=== PATIENT | male | born 1955 | race Caucasian/White ===

== ENCOUNTER 2017-06-10 13:15 | Inpatient (IN) ==
--- NOTE | 2017-06-10 14:29 | Diag Imaging Result Doc PS360 ---
EXAM: CT HEAD W/O CONTRAST HISTORY: ams TECHNIQUE: CT brain without contrast. Dose reduction protocol. COMPARISON: None. FINDINGS: No parenchymal hemorrhage. No epidural or subdural hematoma. No subarachnoid hemorrhage. No mass identified on this noncontrasted exam. No hydrocephalus. There are mild microvascular ischemic changes. No sinus opacification. IMPRESSION: 1.No hemorrhage 2.Minimal atrophy with mild chronic microvascular ischemic changes Electronically signed by Davon Keane 06/10/2017 2:26 PM
--- NOTE | 2017-06-10 14:34 | Diag Imaging Result Doc PS360 ---
EXAM: CHEST-PORTABLE HISTORY: AMS TECHNIQUE: AP portable at 1423 COMMENT: The inspiration is less optimal than on 12/13/2014. Otherwise, there has been no significant change. IMPRESSION: Stable chest. Electronically signed by Michael Han 06/10/2017 2:32 PM
[2017-06-10 14:56] LABS: BASO% 0.1 % (0.0-0.8); EOS# 0.01 X1000 (0.0-0.7); EOS% 0.1 % (0.0-10.0); HEMATOCRIT 43.2 % (42.0-52.0); HEMOGLOBIN 14.5 g/dL (14.0-18.0); IMM GRAN# 0.08 X1000 (0.0-0.04); IMM GRAN% 0.5 % (0.0-0.5); LYMPH# 0.95 X1000 (1.2-3.4); LYMPH% 5.4 % (20.5-51.1); MANUAL DIFF NEEDED? NO; MCH 30.3 PG (27-31); MCHC 33.6 g/dL (33-37); MCV 90.2 FL (81-99); MONO# 1.22 X1000 (0.11-0.59); MONO% 6.9 % (1.7-9.3); MPV 11.7 FL (7.4-10.4); PLT 216 X1000 (130-400); RBC 4.79 XMIL (4.7-6.1)
[2017-06-10 15:17] LABS: MAGNESIUM 2.5 mg/dL (1.5-2.7); POTASSIUM 5.5 mmol/L (3.5-5.1); TOTAL BILIRUBIN 0.78 mg/dL (0.20-1.00); TOTAL PROTEIN 7.4 g/dL (6.3-8.3)
[2017-06-10 15:27] LABS: URINE CULTURE NEEDED? NO; URINE MICRO REVIEW NEEDED? NO; URINE SOURCE CATH
[2017-06-10 15:29] LABS: FREE T4 0.92 ng/dL (0.93-1.70)
[2017-06-10 15:34] LABS: BILIRUBIN URINE NEGATIVE (NEGATIVE); BLOOD URINE LARGE (NEGATIVE); COLOR ORANGE; GLUCOSE URINE NEGATIVE (NEGATIVE); LEUKOCYTES URINE NEGATIVE (NEGATIVE); NITRITE URINE NEGATIVE (NEGATIVE); PH URINE 5.5; PROTEIN URINE 70 mg/dL (NEGATIVE); SP GRAVITY URINE 1.016; TURBIDITY URINE HAZY (CLEAR); UR EPITHELIAL CELLS <10 /HPF (<10); URINE BACTERIA NEGATIVE /HPF; URINE RBC <10 /HPF (<10); URINE WBC <10 /HPF (<10); UROBILINOGEN URINE NORMAL (NORMAL)
--- NOTE | 2017-06-10 15:36 | EKG Report ---
Test Performed on : 06/10/2017 2:00:46 PM Test Reason : AMS Blood Pressure : / mmHG Vent. Rate : 088 BPM Atrial Rate : 088 BPM P-R Int : 138 ms QRS Dur : 108 ms QT Int : 408 ms P-R-T Axes : 024 133 037 degrees QTc Int : 493 ms Normal sinus rhythm. Right axis deviation Right ventricular hypertrophy Nonspecific ST abnormality Prolonged QT Abnormal ECG When compared with ECG of 05-OCT-2014 06:47, QRS axis shifted right QT has lengthened Unconfirmed Result
[2017-06-10] MEDS ORDERED: NS 1,000 ML IV ONE (16:06)
[2017-06-10] MEDS ORDERED: LEVAQUIN 750 MG/D5W 750 MG/150 ML IVPB IV ONE (16:07)
--- NOTE | 2017-06-10 16:19 | PROVIDER DOCUMENTATION ---
This chart was entered by Guille Singer Scribe, acting as scribe for Clara Wilson MD. HPI-General Adult - General Chief Complaint: Altered Mental Status Stated Complaint: AMS Time Seen by Provider: 06/10/17 13:36 Source: patient Allergies/Adverse Reactions: Patient Allergies Allergy/AdvReac Type Severity Reaction Status Date / Time No Known Allergies Allergy Verified 06/10/17 13:44 Home Medications: Home Medication List Medication Instructions Recorded Confirmed Last Taken Type Fluphenazine [Prolixin] 2.5 mg PO QHS 03/06/15 03/06/15 03/05/15 History Fluticasone/Vilanterol [Breo INH DAILY 03/06/15 03/06/15 03/06/15 History Ellipta 100-25 Mcg INH] - History of Present Illness -Gen Adult Nature of Presenting Problems: Patient is a 62 y /o M that presents to the ER via EMS for what EMS described that patient was starring off in space. patient doesn't know why he is here nor has any complaints. He reports son wanted him to come to the ER Location of Pain/Injury: reports: none Pain Radiation: reports: no radiation Quality of Pain: reports: none Severity: reports: mild Onset/Duration: reports: unsure Timing: reports: improving Context/Activities at Onset: reports: none Modifying Factors: improves with: nothing Associated Symptoms: denies: back/neck pain, chest pain, diarrhea, dizziness, fever/chills, genitourinary problems, headaches, nausea, rash, shortness of breath, vomiting, weakness Similar Symptoms Previously?: No Recently seen or treated by another doctor?: No Review of Systems - Adult - REVIEW OF SYSTEMS - ADULT Constitutional: denies: chills, fever Eyes: reports: no symptoms reported Ears, Nose, Mouth & Throat: reports: no symptoms reported Cardiovascular: denies: chest pain, orthopnea, palpitations, syncope Respiratory: denies: cough, shortness of breath, wheezing Gastrointestinal: denies: abdominal pain, hematemesis, diarrhea, nausea, rectal bleeding, vomiting Genitourinary: denies: dysuria, frequency, hematuria Musculoskeletal: denies: back pain, joint pain, neck pain Integumentary: reports: no symptoms reported Neurological: denies: dizziness/vertigo, headache/migraines, seizure, syncope Psychiatric: reports: no symptoms reported Endocrine: reports: no symptoms reported Hematologic/Lymphatic: reports: no symptoms reported Allergic/Immunologic: reports: no symptoms reported All Other Systems: Reviewed and Negative Past History - Adult - PAST MEDICAL HISTORY-ADULT Review of Records: reports: Old Records Reviewed, Nursing Assessment Review, Medications Reviewed Cardiovascular: reports: HTN Respiratory: reports: COPD, sleep apnea Musculoskeletal: reports: chronic pain Psychiatric: reports: bipolar, schizophrenia Endocrine/Immune: reports: Diabetes - PRIOR SURGERIES/PROCEDURES Surgical/Procedure History: reports: back/neck - IMMUNIZATION STATUS Childhood Immunizations: See Nurse Assessment Flu Vaccine: See Nurse Assessment - FAMILY HISTORY Family History: reviewed, not pertinent - SOCIAL HISTORY Smoking: quit greater than 1 year, cigarettes Living Situation: family Physical Exam-General - PHYSICAL EXAM-ADULT Initial Vital Signs Reviewed: Yes - CONSTITUTIONAL General Appearance: alert, no apparent distress - EYES Eyes: PERRL/EOMI, pink conjunctivae - HEAD, EARS, NOSE, MOUTH & THROAT HENMT: normocephalic/atraumatic, moist mucous membranes, normal ENT inspection - NECK Neck: non-tender, full range of motion, normal inspection - RESPIRATORY Respiratory: lungs clear, normal breath sounds, no respiratory distress, no accessory muscle use - CARDIOVASCULAR Cardiovascular: regular rate, rhythm, no edema, no JVD, no murmur - GASTROINTESTINAL (ABDOMEN) Abdominal Exam: normal bowel sounds, non tender, soft - MUSCULOSKELETAL Back Exam: no CVA tenderness, no vertebral tenderness Extremity: normal range of motion, normal inspection, no pedal edema - SKIN Integumentary: normal color, warm/dry - NEUROLOGIC Neurologic: scallop cutter machine II-XII nml as tested, no motor/sensory deficits - PSYCHIATRIC Psych/Mental Status: normal mood/affect, normal thought content, normal thought process, oriented x 3 Progress - PLAN OF CARE/RESULTS Progress/Plan/Lab Results: Vital Signs - 8 hr 06/10/17 13:31 Temperature 98.1 F Pulse Rate 89 Respiratory Rate 16 Blood Pressure 120/77 O2 Sat by Pulse Oximetry 97 1357- spoke with son, he wants patient to go to [facility] for abnormal behavior this am. patient apparently used restroom on himself. Son reports having to go over twice to his father's residence and just wants him evaluated for possible [facility] admission. Patient has no SI, HI, or depression issues. Vital Signs Temp Pulse Resp BP Pulse Ox 06/10/17 15:59 86 18 110/69 96 06/10/17 14:45 86 18 108/67 95 06/10/17 14:05 87 16 108/67 97 06/10/17 13:31 98.1 F 89 16 120/77 97 No Known Allergies Allergy (Verified 06/10/17 13:44) Fluphenazine [Prolixin] 2.5 mg PO QHS 03/06/15 Fluticasone/Vilanterol [Breo Ellipta 100-25 Mcg INH] INH DAILY 03/06/15 Laboratory 06/10/17 06/10/17 06/10/17 14:59 14:13 14:13 WBC RBC Hgb Hct MCV MCH MCHC RDW Std Deviation Plt Count MPV Immature Gran % (Auto) Neut % (Auto) Lymph % (Auto) Mchenry % (Auto) Eos % (Auto) Baso % (Auto) Immature Gran # (Auto) Neut # (Auto) Lymph # (Auto) Mchenry # (Auto) Eos # (Auto) Baso # (Auto) Sodium Potassium Chloride Carbon Dioxide Anion Gap BUN Creatinine Estimated GFR/1.73 m2 BUN/Creatinine Ratio Glucose Calculated Osmolality Calcium Magnesium Total Bilirubin AST ALT Alkaline Phosphatase Total Protein Albumin Globulin Albumin/Globulin Ratio Vitamin B12 328 TSH 1.20 Free T4 0.92 L Urine Source CATH Urine Color ORANGE Urine Turbidity HAZY Urine pH 5.5 Ur Specific [place] 1.016 Urine Protein 70 A Ur Glucose (Stick) NEGATIVE Ur Ketones (Stick) 20 A Urine Blood LARGE A Urine Nitrite NEGATIVE Urine Bilirubin NEGATIVE Urobilinogen Dipstick NORMAL Urine Leukocytes NEGATIVE Urine WBC (Auto) <10 Urine RBC (Auto) <10 U Epithel Cells (Auto) <10 Urine Bacteria (Auto) NEGATIVE RPR NON-REACTIVE 06/10/17 06/10/17 14:13 14:13 WBC 17.74 H RBC 4.79 Hgb 14.5 Hct 43.2 MCV 90.2 MCH 30.3 MCHC 33.6 RDW Std Deviation 14.1 Plt Count 216 MPV 11.7 H Immature Gran % (Auto) 0.5 Neut % (Auto) 87.0 H Lymph % (Auto) 5.4 L Mchenry % (Auto) 6.9 Eos % (Auto) 0.1 Baso % (Auto) 0.1 Immature Gran # (Auto) 0.08 H Neut # (Auto) 15.47 H Lymph # (Auto) 0.95 L Mchenry # (Auto) 1.22 H Eos # (Auto) 0.01 Baso # (Auto) 0.01 Sodium 137 Potassium 5.5 H Chloride 98 Carbon Dioxide 15 L Anion Gap 24 BUN 51 H Creatinine 2.8 H Estimated GFR/1.73 m2 23 BUN/Creatinine Ratio 18 Glucose 75 Calculated Osmolality 286 Calcium 9.0 Magnesium 2.5 Total Bilirubin 0.78 AST 526 H ALT 111 H Alkaline Phosphatase 113 Total Protein 7.4 Albumin 4.0 Globulin 3.4 Albumin/Globulin Ratio 1.2 Vitamin B12 TSH Free T4 Urine Source Urine Color Urine Turbidity Urine pH Ur Specific [place] Urine Protein Ur Glucose (Stick) Ur Ketones (Stick) Urine Blood Urine Nitrite Urine Bilirubin Urobilinogen Dipstick Urine Leukocytes Urine WBC (Auto) Urine RBC (Auto) U Epithel Cells (Auto) Urine Bacteria (Auto) RPR Result Diagrams: 06/10/17 14:13 06/10/17 14:13 - EKG 1 Time of EKG reading by physician:: 14:12 EKG Read and Signed by:: Clara Wilson EKG Interpretation (*Must complete 3 of following elements*): Abnormal Rate: 88 Rhythm: NSR Nolan: right ID Interval: normal ST Wave: non-specific ST changes - XRAY 1 XRAY Study: Chest Impression: Abnormal XRAY Interpretation: stable chest - CT/MRI 1 CT Study: Head Impression: Abnormal CT Results: no hemorrhage, atrophy microvascular changes - CONSULTS/PCP/HOSPITALIST Notification #1 *Consult/PCP/Hospitalist*: Rachel KAY with hospitalist Time Discussed: 16:15 Reason/Comments: Consult Disposition: Will see in ED, Admit Departure - Departure Date of Disposition Decision: 06/10/17 Time of Disposition Decision: 16:17 DIAGNOSIS: Renal insufficiency, Leukocytosis, UTI (urinary tract infection), uncomplicated Mental status alteration Qualifiers: Altered mental status type: unspecified Qualified Code(s): R41.82 - Altered mental status, unspecified Disposition: ADMITTED INPATIENT 09 Certified Medical Emergency: Emergent Condition: Stable Referrals and Follow-Ups: Garry Virgen MD [Primary Care Provider] - - Critical Care Note This patient required my direct & personal management of CC.: No Attestation - Physician/ EDGARD Attestation The physician spent face to face time with patient:: Yes Advanced Practice Provider documentation review:: Supervising physician onsite and consulted in the evaluation and care of this patient. The physician did have a face to face encounter with the patient. This chart was documented by the indicated scribe, (Guille Singer, Lukas) and accurately reflects the services I performed and decisions made by me, Clara Wilson MD, as attested by the provider's signature.
[2017-06-10] MEDS ORDERED: VELTASSA PO ONE (17:12)
--- NOTE | 2017-06-10 19:11 | HISTORY AND PHYSICAL ---
PRIMARY CARE PROVIDER: Is no longer Frantz Chua, but now Dr. Garry Virgen. CHIEF COMPLAINT: Fall and confusion. HISTORY OF PRESENT ILLNESS: Mr. Junito Anderson is a 62-year-old, male, with a medical history of schizophrenia and bipolar disorder who apparently been having some on and off confusion over the last couple of days per his roommate and his son. The son seems to think that maybe he has been getting some of his medications confused and they have come here to get him admitted to [facility]. Workup revealed that he has some mild ANTHONY with a BUN and creatinine of 51 and 2.8, some elevation of his AST and ALT, and elevated white blood cell count. He is afebrile. The urinalysis does show some blood, but no bacteria or white blood cells. A chest x-ray has no obvious pneumonia. In the falls he has not sustained any injuries and his head CT was negative. We will admit to the medical floor. Continue psychiatric medications once they are confirmed. Will start antibiotic regimen for leukocytosis with unknown origin of infection , IV fluid for hydration for ANTHONY, and elevated AST and ALT, and will monitor for his confusion. PAST MEDICAL HISTORY: Bipolar disorder, schizophrenia, metabolic syndrome, hypertension. SURGICAL HISTORY: Back surgery. SOCIAL HISTORY: Retired cyber security manager. Has a roommate. Lives in an apartment. Has 1 son. Denies tobacco, alcohol or illicit drug use. FAMILY HISTORY: Mother of natural causes. REVIEW OF SYSTEMS: Fourteen point review of systems were completed and all were negative except for those mentioned above in HPI. He denies any urinary tract infections. Denies dysuria, urinary urgency or foul-smelling urine. Denies any shortness of breath or cough. Denies nausea or vomiting. Denies constipation or diarrhea. ALLERGIES: No known drug allergies. HOME MEDICATIONS: Have not been yet verified or reconciled. PHYSICAL EXAMINATION: VITAL SIGNS: Temperature is 98.1 degrees, heart rate 86, respiratory rate 18, blood pressure 110/69, O2 saturation 96% on room air. He is 6 feet 5 inches tall, 278 pounds. BMI 33.0. GENERAL: Mr. Junito Anderson is a 62-year-old, male. He is in no acute distress. He is able to answer questions appropriately. HEENT: Atraumatic, normocephalic. Pupils equal, round, reactive to light. Extraocular movements intact. Mucous membranes are dry. NECK: Trachea midline. CARDIOVASCULAR: S1, S2. Regular rate and rhythm. No rubs, gallops, murmurs. No JVD or carotid bruits. +2 dorsalis and radial pulses. No edema noted. PULMONARY: Clear to auscultation. Bilateral breath sounds. No accessory muscle use or work of breathing noted. GI: Soft, nontender, nondistended. Positive bowel sounds x 4. NEUROLOGIC: Oriented x 3. Moved all extremities equally. SKIN: Warm, dry, intact. PSYCHIATRIC: Current psych is pleasant, not confused, is cooperative. No agitation at this time. LABORATORY DATA: White blood cells 17,000, hemoglobin 14, hematocrit 43, platelet count 216,000. Sodium 137, potassium 5.5, BUN 51, creatinine is 2.8, glucose 75, magnesium 2.5 , bilirubin 0.78. AST 526, ALT 111, protein 7.4, albumin 4.0, B12 328, folate 25, TSH. 1.2, free T4 is 0.92. Urinalysis 70 protein, 20 ketones, large blood in the urine. Negative nitrites , negative leukocytes, negative bacteria. IMAGING: Head CT: No hemorrhage, minimal atrophy with mild chronic microvascular ischemic changes. EKG: Normal sinus rhythm, rate 88, QTc 493. Chest x-ray: Stable chest. ASSESSMENT AND PLAN: 1. Leukocytosis with unfound origin for infection. He is afebrile. Urinalysis does have blood in it, but no obvious leukocytes, nitrites or bacteria. We will go ahead and prophylactically give Zosyn IV and follow up on blood cultures. 2. Metabolic encephalopathy. He has had on and off confusion over the last couple of days. Could be associated with his history of schizophrenia or bipolar disorder as the son thinks that there is possibility that he has been getting some of his medications confused. Will monitor closely. 3. Frequent falls, but no injuries. Apparently he had also soiled himself during a fall, but patient denies having dizziness. States that he only lost his balance. Head CT was negative. 4. Acute kidney injury with dehydration. We will do IV fluid hydration 75 mL of normal saline an hour x 2 L and follow up on BUN and creatinine. 5. Transaminitis. There is no abdominal pain with palpation likely secondary to dehydration. We will trend with IV fluid hydration. 6. Schizophrenia and bipolar disorder. Once home medications are reconciled, will resume home medications and consult [facility] [place] once medically stable. 7. Hypertension. His home medications have not been reconciled, but his blood pressure is stable at this time. 8. Metabolic syndrome. Currently his glucose is 75 and his point of care glucose was 105. We will trend daily glucose levels. 9. Hyperkalemia. Will give a 1 time dose of Veltassa. 10. Deep venous thrombosis prophylaxis. We will do low-dose Lovenox. 11. Gastrointestinal prophylaxis. Proton pump inhibitor. Dictated by ELIZA Dolan for Germain Slater MD cc: ELIZA Dolan MD I have seen and examined patient. I have provided face to face evaluation. Patient present with acute onset of global encephalopathy likely due to occult infection vs medication mediated. I agree with the above outline plan and will continue with same. Cultures have been done and antibiotics started until we know culture results.SIRISHA DEL VALLE
[2017-06-10] MEDS ORDERED: ZOFRAN IV PRN (20:28)
[2017-06-10] MEDS: NS 1,000 ML IV SCH (22:17)
[2017-06-11] MEDS: ZOSYN 3.375 GM in NS 50 ML IV SCH ×4 (03:07→14:27)
[2017-06-11 06:29] LABS: BASO% 0.1 % (0.0-0.8); EOS# 0.04 X1000 (0.0-0.7); EOS% 0.3 % (0.0-10.0); HEMATOCRIT 41.1 % (42.0-52.0); HEMOGLOBIN 13.6 g/dL (14.0-18.0); IMM GRAN% 0.7 % (0.0-0.5); LYMPH# 1.04 X1000 (1.2-3.4); LYMPH% 7.6 % (20.5-51.1); MANUAL DIFF NEEDED? NO; MCH 29.6 PG (27-31); MCHC 33.1 g/dL (33-37); MCV 89.5 FL (81-99); MONO# 1.27 X1000 (0.11-0.59); MONO% 9.2 % (1.7-9.3); MPV 11.4 FL (7.4-10.4); NEUT% 82.1 % (42.2-75.2); PLT 220 X1000 (130-400); RBC 4.59 XMIL (4.7-6.1)
[2017-06-11 06:58] LABS: ALBUMIN 3.6 g/dL (3.5-5.0); CALCIUM 8.8 mg/dL (8.8-10.2); MAGNESIUM 2.3 mg/dL (1.5-2.7); POTASSIUM 4.5 mmol/L (3.5-5.1); TOTAL BILIRUBIN 0.8 mg/dL (0.20-1.00); TOTAL PROTEIN 7.2 g/dL (6.3-8.3)
[2017-06-11 07:09] LABS: INR 1.24 (0.86-1.15); PROTIME 16.6 Seconds (12.1-15.5)
[2017-06-11 07:10] LABS: PTT PL 38.8 Seconds (22.6-43.9)
[2017-06-11] MEDS: PRILOSEC PO SCH (07:16)
[2017-06-11] MEDS: LOVENOX SUBQ SCH (08:23)
[2017-06-11] MEDS: NS 1,000 ML IV SCH (11:02)
--- NOTE | 2017-06-11 18:21 | PROGRESS NOTE ---
DATE: 06/11/2017 SUBJECTIVE: The patient has no focal complaints. OBJECTIVE: Vital signs: Blood pressure is 122/84, heart rate of 86, respiratory rate of 20, temperature 97.7 degrees, 100% on room air. Cardiovascular: Regular rate and rhythm. Pulmonary: Bilateral breath sounds. Clear to auscultation. Gastrointestinal: Soft, nontender, nondistended. Bowel sounds are positive. neurologic: The patient seems more with it. He still seems a little agitated, but he seems not as upset. LABORATORY DATA: His creatinine is down to 2.3, sodium is 135, his bicarb was 16. White count 13,000. PROBLEM LIST: 1. Acute kidney injury. We will continue IV fluids and follow clinically. 2. Leukocytosis, just unclear what the source is. So far, all his laboratory testing is negative. I am going to do an abdominal ultrasound tomorrow. He has been placed on Zosyn empirically, but I am going to hold that for right now because it is not clear what we are treating. 3. Encephalopathy. This seems to be resolving. He does have a history of bipolar disorder and schizophrenia, so we will continue his medications and follow. DISPOSITION: Pending clinical status. At this point, he does not seem to be having any major primary psychiatric issues, so we will follow. cc: Jordon Heredia MD
--- NOTE | 2017-06-12 05:22 | EKG Report ---
Test Performed on : 06/11/2017 07:43:29 AM Test Reason : evaluate qtc Blood Pressure : / mmHG Vent. Rate : 082 BPM Atrial Rate : 082 BPM P-R Int : 194 ms QRS Dur : 108 ms QT Int : 398 ms P-R-T Axes : 058 118 066 degrees QTc Int : 464 ms Normal sinus rhythm. Right axis deviation Right ventricular hypertrophy Abnormal ECG When compared with ECG of 10-JUN-2017 14:00, No significant change was found Confirmed by Zackary Roach MD ([id number]) on 06/12/2017 8:15:42 PM
[2017-06-12] MEDS: PRILOSEC PO SCH (06:04)
[2017-06-12 06:11] LABS: MANUAL DIFF NEEDED? NO
[2017-06-12 06:42] LABS: CALCIUM 8.4 mg/dL (8.8-10.2); POTASSIUM 3.3 mmol/L (3.5-5.1)
[2017-06-12 06:52] LABS: BASO% 0.3 % (0.0-0.8); EOS# 0.15 X1000 (0.0-0.7); EOS% 1.9 % (0.0-10.0); HEMATOCRIT 36.2 % (42.0-52.0); HEMOGLOBIN 12.1 g/dL (14.0-18.0); IMM GRAN# 0.07 X1000 (0.0-0.04); IMM GRAN% 0.9 % (0.0-0.5); LYMPH# 1.17 X1000 (1.2-3.4); LYMPH% 15.1 % (20.5-51.1); MCH 29.8 PG (27-31); MCHC 33.4 g/dL (33-37); MCV 89.2 FL (81-99); MONO# 0.92 X1000 (0.11-0.59); MONO% 11.9 % (1.7-9.3); MPV 11.9 FL (7.4-10.4); NEUT% 69.9 % (42.2-75.2); PLT 183 X1000 (130-400); RBC 4.06 XMIL (4.7-6.1)
[2017-06-12] MEDS: LOVENOX SUBQ SCH (08:33)
[2017-06-12] MEDS ORDERED: KLOR-CON PO ONE (09:57)
--- NOTE | 2017-06-12 13:28 | Diag Imaging Result Doc PS360 ---
EXAM: US ABDOMEN-COMPLETE HISTORY: abdominal pain TECHNIQUE: Abdominal ultrasound COMMENT: There are multiple subcentimeter stones throughout the gallbladder. No sonographic Walker sign is present and there is no evidence of para cholecystic fluid. The aorta, inferior vena cava, and pancreas are obscured. The left lobe of the liver is not well seen. What can be seen of the liver is unremarkable in appearance. There is no evidence of biliary dilatation, the common bile duct measuring 3 mm. There is antegrade flow in the portal vein. There is a 2.8 cm cyst in the lateral right kidney. No evidence of hydronephrosis or mass is present otherwise on the right. The spleen is not enlarged. Left kidney is not well demonstrated but there may be a 1.4 cm cyst seen laterally and inferiorly. No abnormal fluid collections are present. IMPRESSION: Suboptimal study due to the patient's condition. Cholelithiasis. Electronically signed by Michael Han 06/12/2017 1:26 PM
--- NOTE | 2017-06-12 15:36 | PROGRESS NOTE ---
DATE: 06/12/2017 SUBJECTIVE: The patient has no focal complaints. OBJECTIVE: Blood pressure 134/63, heart rate of 79, respiratory rate of 20, temperature was 98.9 degrees, 100% on room air.Cardiovascular: Regular rate and rhythm. Pulmonary: Bilateral breath sounds. Clear to auscultation. GI: Soft, nontender, nondistended. Bowel sounds are positive. Extremities: No clubbing or cyanosis. Lymphatics: No peripheral edema. Neurological: Nonfocal. LABORATORY DATA: Creatinine is down to 1.5, potassium 3.3. White count is normal at 7.7. He is having some diarrhea now. PROBLEM LIST: 1. Leukocytosis. Unclear. I think the diarrhea is likely related to the antibiotics but we have stopped those. We will screen him for C. difficile and then give him treatment. 2. Hypokalemia. He seems to be very mild. We will give him some supplementation. 3. Acute kidney injury which is his major issue. He is stable. I think he is stable to be discharged. He is medically stable for psychiatric evaluation. 4. Bipolar with possible crisis. We will continue to follow. 5. Disposition. Medically stable for treatment with evaluation with [facility]. cc: Jordon Heredia MD
[2017-06-12] MEDS: ZOLOFT PO SCH (16:03)
[2017-06-12] MEDS: WELLBUTRIN XL PO SCH (16:03)
[2017-06-12] MEDS: MINIPRESS PO SCH (22:14)
[2017-06-13] MEDS: IMODIUM PO PRN (00:43)
[2017-06-13] MEDS: PRILOSEC PO SCH (06:32)
[2017-06-13] MEDS: ZOLOFT PO SCH (10:27)
[2017-06-13] MEDS: WELLBUTRIN XL PO SCH (10:28)
[2017-06-13] MEDS: ZYLOPRIM PO SCH (10:28)
[2017-06-13] MEDS: LOVENOX SUBQ SCH (10:28)
[2017-06-13] MEDS: PROLIXIN PO SCH (10:28)
--- NOTE | 2017-06-13 19:25 | PROGRESS NOTE ---
DATE: 06/13/2017 SUBJECTIVE: Patient has no focal complaints. OBJECTIVE: Vital Signs: Blood pressure 166/89, heart rate 76, respiratory rate 18, temperature 97.5 degrees. General: A well-developed male, in no acute distress. Cardiovascular: Regular rate and rhythm. Pulmonary: Bilateral breath sounds. Clear to auscultation. Gastrointestinal: Abdomen soft, nontender, nondistended. Bowel sounds are positive. LABORATORY DATA: White count 7.7, hemoglobin and hematocrit 12 and 36, platelets of 183,000. Potassium 3.3, creatinine 1.5. PROBLEM LIST DESCRIBED: 1. Acute kidney injury. Clinically he appears to be doing better. We will continue to follow closely. 2. Leukocytosis. Unclear etiology. 3. Hypokalemia has resolved. 4. Bipolar with a possible exacerbation. [facility] has evaluated the patient. It sounds like they did recommend inpatient but felt he was not strong enough to pursue care at their facility and may need rehabilitation. 5. Disposition. We will look at rehabilitation facilities versus other psychiatric facilities. We will get Social Work to work with us on that. cc: Jordon Heredia MD
[2017-06-13] MEDS: MINIPRESS PO SCH (21:11)
[2017-06-14] MEDS: IMODIUM PO PRN ×2 (00:15→20:18)
[2017-06-14] MEDS: PRILOSEC PO SCH (06:15)
[2017-06-14 07:06] LABS: MCHC 33.3 g/dL (33-37); MCV 90.1 FL (81-99); MPV 11.9 FL (7.4-10.4); RBC 4.33 XMIL (4.7-6.1)
[2017-06-14 07:16] LABS: AGAP 11; BUN 19 mg/dL (8-22); CALCIUM 8.5 mg/dL (8.8-10.2); CHLORIDE 105 mmol/L (98-107); COSMO 278; POTASSIUM 3.6 mmol/L (3.5-5.1); SODIUM 138 mmol/L (136-145); TCO2 22 mmol/L (25-35)
[2017-06-14] MEDS: LOVENOX SUBQ SCH (08:23)
[2017-06-14] MEDS: PROLIXIN PO SCH (08:23)
[2017-06-14] MEDS: ZOLOFT PO SCH (08:23)
[2017-06-14] MEDS: ZYLOPRIM PO SCH (08:23)
[2017-06-14] MEDS: WELLBUTRIN XL PO SCH (08:24)
--- NOTE | 2017-06-14 16:07 | PROGRESS NOTE ---
DATE: 06/14/2017 SUBJECTIVE: Patient has no focal complaints. OBJECTIVE: Vital Signs: Blood pressure 126/87, heart rate of 83, respiratory 18, temperature 98.4, 98% on room air. Cardiovascular: Regular rate and rhythm. Pulmonary: Bilateral breath sounds. LABORATORY DATA: Hemoglobin and hematocrit 13 and 39. White count 16. BMP is normal. PROBLEM LIST: 1. Acute kidney injury that has resolved. 2. Leukocytosis has resolved. 3. Hypokalemia that is resolved. 4. Bipolar. I think he is pretty well compensated. DISPOSITION: We are planning for rehab placement and clarify his benefits. cc: Jordon Heredia MD
[2017-06-14] MEDS: MINIPRESS PO SCH (20:17)
[2017-06-15] MEDS: IMODIUM PO PRN ×3 (00:27→14:23)
[2017-06-15] MEDS: PRILOSEC PO SCH (06:12)
[2017-06-15] MEDS: LOVENOX SUBQ SCH (09:12)
[2017-06-15] MEDS: ZYLOPRIM PO SCH (09:12)
[2017-06-15] MEDS: PROLIXIN PO SCH (09:12)
[2017-06-15] MEDS: WELLBUTRIN XL PO SCH (09:12)
[2017-06-15] MEDS: ZOLOFT PO SCH (09:12)
[2017-06-15] MEDS: MINIPRESS PO SCH (21:42)
[2017-06-16] MEDS: ZOLOFT PO SCH (08:43)
[2017-06-16] MEDS: WELLBUTRIN XL PO SCH (08:43)
[2017-06-16] MEDS: PROLIXIN PO SCH (08:43)
[2017-06-16] MEDS: ZYLOPRIM PO SCH (08:43)
[2017-06-16] MEDS: PRILOSEC PO SCH (08:43)
[2017-06-16] MEDS: ULTRAM PO PRN (08:43)
[2017-06-16] MEDS: LOVENOX SUBQ SCH (08:43)
[2017-06-16] MEDS ORDERED: CALMOSEPTINE OINTMENT TOP PRN (16:46)
[2017-06-16] MEDS: IMODIUM PO PRN (16:48)
[2017-06-16] MEDS: MINIPRESS PO SCH (22:01)
[2017-06-16] MEDS: DOXYCYCLINE PO SCH (22:01)
[2017-06-17 06:03] LABS: HEMATOCRIT 39.7 % (42.0-52.0); HEMOGLOBIN 12.9 g/dL (14.0-18.0); MCH 30.4 PG (27-31); MCHC 32.5 g/dL (33-37); MCV 93.4 FL (81-99); MPV 11.5 FL (7.4-10.4); RBC 4.25 XMIL (4.7-6.1)
[2017-06-17] MEDS: PRILOSEC PO SCH (06:09)
[2017-06-17] MEDS: PROLIXIN PO SCH (08:43)
[2017-06-17] MEDS: LOVENOX SUBQ SCH (08:43)
[2017-06-17] MEDS: ZOLOFT PO SCH (08:43)
[2017-06-17] MEDS: WELLBUTRIN XL PO SCH (08:44)
[2017-06-17] MEDS: ZYLOPRIM PO SCH (08:44)
[2017-06-17] MEDS: DOXYCYCLINE PO SCH ×2 (08:44→22:17)
--- NOTE | 2017-06-17 11:45 | PROGRESS NOTE ---
DATE: 06/17/2017 SUBJECTIVE: Mr. Anderson has no complaints. He is sitting up, eating breakfast at the time of exam. He denied any chest pain, palpitations, shortness of breath, cough, fever, or chills. OBJECTIVE: Vital Signs: Blood pressure is 145/85, with a heart rate of 77, respirations are 18, temperature is 97.7 degrees oral, with room air saturations of 96-100%. Cardiovascular: Regular rate and rhythm. S1 and S2 are appreciated. Pulmonary: Breath sounds are clear with no increased work of breathing noted. Gastrointestinal: Abdomen is soft, nontender, nondistended, with bowel sounds in all 4 quadrants. Back: No CVAT. No spine tenderness. Extremities: No clubbing, cyanosis, or edema. Calves are nontender. Pulses are palpable x4. Labs: WBC is 9.4, with hemoglobin of 12.9, hematocrit 39.7, and platelets of 181,000. PROBLEM LIST: 1. Acute kidney injury, resolved. 2. Leukocytosis, resolved. 3. Hypokalemia, resolved. 4. Bipolar disorder, aware. 5. Metabolic encephalopathy. His confusion has resolved. He is back to his baseline. The patient was evaluated by [facility] on 06/09/2017 or 06/10/2017. They recommended inpatient but they felt like he was not strong enough to receive care at their facility. As the patient has continued with physical therapy and his strength has increased, we will have him re-evaluated by [facility]. Dictated by ELIZA Mcnally for Nash Carrillo MD cc: ELIZA Mcnally MD
--- NOTE | 2017-06-17 20:36 | PROGRESS NOTE ---
DATE: 06/17/2017 ADDENDUM: SUBJECTIVE: Patient seen and examined by myself, full note dictated by nurse practitioner. Patient overall states that he is feeling a little bit better. He is actually able to get up and move about some. He is moving much easier now than he was a few days ago. He is able to get to the bedside commode with minimal assistance. PHYSICAL: Vital signs reviewed. He is afebrile. Blood pressures are stable, elevated at 148/74. General. Patient is awake, alert. He is in no distress. He is pleasant to talk with. CV is regular rate. ASSESSMENT: Acute kidney injury resolved. He has actually starting participate better with physical therapy and hopefully can transition to [facility] without actually having to go to rehab 1st. Will get physical therapy involved today and see how much stronger he is. cc: Nash Carrillo MD
[2017-06-17] MEDS: ULTRAM PO PRN (22:17)
[2017-06-17] MEDS: MINIPRESS PO SCH (22:17)
[2017-06-18] MEDS: PRILOSEC PO SCH (06:21)
[2017-06-18] MEDS: LOVENOX SUBQ SCH (08:02)
[2017-06-18] MEDS: WELLBUTRIN XL PO SCH (09:19)
[2017-06-18] MEDS: ZYLOPRIM PO SCH (09:19)
[2017-06-18] MEDS: ZOLOFT PO SCH (09:19)
[2017-06-18] MEDS: DOXYCYCLINE PO SCH (09:19)
[2017-06-18] MEDS: ULTRAM PO PRN (09:24)
[2017-06-18] MEDS: PROLIXIN PO SCH (10:23)
--- NOTE | 2017-06-18 12:29 | DISCHARGE SUMMARY ---
ADMISSION DATE: 06/10/2017 DISCHARGE DATE: DISCHARGE DIAGNOSES: 1. Acute kidney injury secondary dehydration. 2. Bipolar disorder and schizophrenia, possible schizoaffective disorder. 3. Metabolic encephalopathy. 4. Transaminitis. 5. Metabolic syndrome. 6. Hypertension briefly. HOSPITAL COURSE: Briefly, patient came in with a BUN and creatinine of 51 and 2.8, altered mentation with hydration, though, he improved very quickly. The following day, creatinine was down at 2.3. Did have some leukocytosis. He had been placed on Zosyn empirically. We did an abdominal ultrasound, which was negative except for cholelithiasis, but he had no pain upon abdominal exam. His liver enzymes were somewhat elevated, and he did have some steatohepatitis. But his bilirubin and alkaline phosphatase were within normal limits. The patient slowly clinically improved. His mental status improved. He did have some diarrhea. We checked him for C difficile that was negative. His leukocytosis improved. His creatinine improved. Creatinine, at time of discharge, was 1.0, white count was 9, hemoglobin and hematocrit 12 and 39. Plans were made initially for [facility] evaluation because of his history of bipolar and schizophrenia. Initially, they had evaluated him, but declined because he was too weak with. Progressive PT therapy though, he did improve on the second, where he was re-evaluated by [facility] and they felt he was stable, that he did not need inpatient therapy and rehab would be appropriate. His confusion had resolved. So we will plan to discharge him on the 3rd on his current medications. He does have on exam, though some erythema along his right and left foot associated with some superficial abrasions. These have improved since the initiation of doxycycline, so he probably has a little bit of cellulitis, so we will continue that. DISCHARGE MEDICATIONS: Allopurinol 100 daily, Wellbutrin 300 daily, doxycycline 100 p.o. b.i.d. for 10 days, Fluphenazine 1 daily, prazosin two daily, Zoloft 200 daily, tramadol p.r.n. DISCHARGE CONDITION: Stable. TIME SPENT: 32 minute discharge. DISPOSITION: He is going to [facility], graciously accepted him as a transfer. cc: MD Garry Mireles MD
[2017-06-18 13:13] VITALS: BP 127/80
== END 2017-06-18 14:25 ==
LOC: SUPCPDRO → ED 13:15 → P.MEDSURG 17:09 → SUATTDRO 17:09 → P.MEDSURG 17:30
PROVIDERS: ATTEND Internal Medicine

== ENCOUNTER 2019-05-17 16:57 | Inpatient (IN) ==
--- NOTE | 2019-05-17 17:25 | PROVIDER DOCUMENTATION ---
HPI-Respiratory General - General Chief Complaint: Shortness of Breath Stated Complaint: ABNORMAL CHEST XRAY Time Seen by Provider: 05/17/19 16:59 Source: family, other (Hospice nurse, son) Allergies/Adverse Reactions: Patient Allergies Allergy/AdvReac Type Severity Reaction Status Date / Time No Known Allergies Allergy Verified 06/10/17 13:44 Home Medications: Home Medication List Medication Instructions Recorded Confirmed Last Taken Type Allopurinol 100 mg PO DAILY 06/10/17 05/17/19 05/17/19 History Prazosin [Minipress] 2 mg PO QHS 06/10/17 05/17/19 05/16/19 History Sertraline [Zoloft] 200 mg PO DAILY 06/10/17 05/17/19 Unknown History Clindamycin HCl 1 tab PO TID 05/17/19 05/17/19 05/17/19 History 0700 Diazepam 1 tab PO QHS 05/17/19 05/17/19 05/16/19 History Divalproex [Depakote] 1 tab PO ORDERED 05/17/19 05/17/19 05/17/19 History Ergocalciferol (Vitamin D2) 1 dose PO DIRECTED 05/17/19 05/17/19 05/14/19 History [Vitamin D2] Hydrocodone/Acetaminophen 1 tab PO Q6H PRN 05/17/19 05/17/19 05/17/19 History [Hydrocodone-Acetamin 10-325 mg] Levofloxacin 1 tab PO DAILY 05/17/19 05/17/19 05/17/19 History Magnesium Hydroxide [Milk of 30 ml PO QHS PRN 05/17/19 05/17/19 Unknown History Magnesia] Menthol [Biofreeze] 1 applic TD BID PRN 05/17/19 05/17/19 Unknown History Olanzapine 1 tab PO BID 05/17/19 05/17/19 05/17/19 History Pramipexole Di-HCl [Mirapex] 1 tab PO TID 05/17/19 05/17/19 05/17/19 History Promethazine [Phenergan] 1 tab PO Q4-6H PRN PRN 05/17/19 05/17/19 Unknown History Psyllium Husk (with Sugar) 1 dose PO PRN PRN 05/17/19 05/17/19 Unknown History [Metamucil Packet] Sennosides/Docusate Sodium [Colace 1 tab PO BID 05/17/19 05/17/19 05/17/19 History 2-in-1 Tablet] Starch [Thick-It] 1 dose PO DIRECTED 05/17/19 05/17/19 05/17/19 History Tramadol [Ultram] 50 mg PO QHS 05/17/19 05/17/19 05/17/19 History - History of Present Illness-Resp Nature of Presenting Problem: 64 YO M pmh for COPD on intermittent o2 by NC, and Parkinson's sent to ED by functional tester due to an abnormal CXR. Pt had been treated for pna x 2 recently, and CXR was showing worsening pna vs. TB with cavitary lesions. Pt has been declining over the past 2 weeks since symptoms began. He has productive cough and confusion, but denies fever, LE swelling. He is currently living with son. They are trying to get him approved for [facility] placement. Hospice Nurse is also present in the room. Pt is currently on abx that was started 3 days ago, and he was treated for pna back in the beginning of April 2019 with no improvement. Quality of Pain: reports: none Severity in ED: reports: mild Onset/Duration: reports: 2 days ago Timing: reports: still present Context: reports: recent URI, aspiration/choking. denies: recent foreign travel Cough Quality/Degree: reports: productive cough, blood streaked sputum Current Respiratory Medication Therapy: Initiated albuterol Modifying Factors: improves with: nothing Associated Symptoms: reports: cough, shortness of breath, wheezing. denies: fever/chills, flu-like symptoms, headache, hurts to breathe, lightheadedness, muscle/bodyaches, nasal congestion, nasal drainage Similar Symptoms Previously?: Yes Recently seen or treated by another doctor?: No Review of Systems - Adult - REVIEW OF SYSTEMS - ADULT ROS:: limited per condition Constitutional: denies: chills, fever Eyes: reports: no symptoms reported Cardiovascular: reports: no symptoms reported Respiratory: reports: cough Gastrointestinal: denies: abdominal pain, nausea, vomiting Genitourinary: reports: no symptoms reported Musculoskeletal: reports: no symptoms reported Neurological: denies: dizziness/vertigo, syncope Endocrine: reports: no symptoms reported Hematologic/Lymphatic: reports: no symptoms reported Past History - Adult - PAST MEDICAL HISTORY-ADULT Review of Records: reports: Old Records Reviewed, Nursing Assessment Review, Medications Reviewed, Social history reviewed & non-contributory. Major Childhood Illnesses: reports: denies history Cardiovascular: reports: HTN Respiratory: reports: COPD, sleep apnea Gastrointestinal: reports: denies history Musculoskeletal: reports: chronic pain Neurological: reports: Seizures/Epilepsy Psychiatric: reports: bipolar, schizophrenia Endocrine/Immune: reports: Diabetes - PRIOR SURGERIES/PROCEDURES Surgical/Procedure History: reports: back/neck - IMMUNIZATION STATUS Childhood Immunizations: See Nurse Assessment Flu Vaccine: See Nurse Assessment - FAMILY HISTORY Family History: reviewed, not pertinent Physical Exam-General - PHYSICAL EXAM-ADULT Exam Limited by: body habitus and lack of mobility Initial Vital Signs Reviewed: Yes - CONSTITUTIONAL General Appearance: slow to respond - EYES Eyes: PERRL/EOMI - HEAD, EARS, NOSE, MOUTH & THROAT HENMT: negative: moist mucous membranes - RESPIRATORY Respiratory: lungs clear, normal breath sounds - CARDIOVASCULAR Cardiovascular: no edema - GASTROINTESTINAL (ABDOMEN) Abdominal Exam: normal bowel sounds, non tender, soft - MUSCULOSKELETAL Extremity: no pedal edema, no calf tenderness - SKIN Integumentary: normal color, normal turgor, warm/dry - NEUROLOGIC Neurologic: grossly normal - PSYCHIATRIC Psych/Mental Status: normal mood/affect Progress - PLAN OF CARE/RESULTS Progress/Plan/Lab Results: Vital Signs - 8 hr 05/17/19 16:58 05/17/19 17:03 05/17/19 17:08 Temperature 96.8 F L 97.2 F L Pulse Rate 84 92 H Respiratory Rate 18 18 Blood Pressure 94/75 O2 Sat by Pulse Oximetry 89 L 88 L 94 L 05/17/19 17:09 05/17/19 17:15 05/17/19 17:30 Temperature Pulse Rate 69 71 Respiratory Rate 17 18 Blood Pressure 137/76 101/71 98/66 O2 Sat by Pulse Oximetry 97 96 94 L 05/17/19 17:31 05/17/19 18:00 05/17/19 18:01 Temperature Pulse Rate 67 71 71 Respiratory Rate 26 H 19 17 Blood Pressure 109/72 O2 Sat by Pulse Oximetry 96 83 L 94 L 05/17/19 18:15 05/17/19 18:30 05/17/19 18:31 Temperature Pulse Rate 67 68 67 Respiratory Rate 16 18 18 Blood Pressure 116/69 117/78 O2 Sat by Pulse Oximetry 97 96 96 05/17/19 18:45 05/17/19 19:00 05/17/19 19:01 Temperature Pulse Rate 70 66 68 Respiratory Rate 18 12 15 Blood Pressure 115/78 109/79 O2 Sat by Pulse Oximetry 96 95 95 05/17/19 19:15 05/17/19 19:30 05/17/19 19:31 Temperature Pulse Rate 68 63 71 Respiratory Rate 13 10 L 16 Blood Pressure 116/80 113/71 O2 Sat by Pulse Oximetry 95 100 98 05/17/19 19:45 05/17/19 20:15 Temperature Pulse Rate 64 67 Respiratory Rate 17 13 Blood Pressure 113/81 155/105 O2 Sat by Pulse Oximetry 97 93 L Laboratory Results - last 24 hr 05/17/19 05/17/19 05/17/19 17:55 17:55 17:55 WBC 12.18 H RBC 4.81 Hgb 14.0 Hct 44.1 MCV 91.7 MCH 29.1 MCHC 31.7 L RDW Std Deviation 15.1 H Plt Count 171 MPV 12.6 H Immature Gran % (Auto) 0.6 H Neut % (Auto) 80.7 H Lymph % (Auto) 8.2 L Gilchrist % (Auto) 5.4 Eos % (Auto) 4.9 Baso % (Auto) 0.2 Immature Gran # (Auto) 0.07 H Neut # (Auto) 9.82 H Lymph # (Auto) 1.00 L Gilchrist # (Auto) 0.66 H Eos # (Auto) 0.60 Baso # (Auto) 0.03 Sodium 143 Potassium 4.1 Chloride 102 Carbon Dioxide 29 Anion Gap 12 BUN 27 H Creatinine 1.3 H Estimated GFR/1.73 m2 55 BUN/Creatinine Ratio 21 Glucose 94 Calculated Osmolality 290 Calcium 9.4 Total Bilirubin 0.48 AST 20 ALT 20 Alkaline Phosphatase 70 Troponin T < 0.010 Yzd-A-Vzzchlsiazy Pept Total Protein 7.6 Albumin 3.5 Globulin 4.1 Albumin/Globulin Ratio 0.9 Plasma Lactate 05/17/19 05/17/19 17:55 20:21 WBC RBC Hgb Hct MCV MCH MCHC RDW Std Deviation Plt Count MPV Immature Gran % (Auto) Neut % (Auto) Lymph % (Auto) Gilchrist % (Auto) Eos % (Auto) Baso % (Auto) Immature Gran # (Auto) Neut # (Auto) Lymph # (Auto) Gilchrist # (Auto) Eos # (Auto) Baso # (Auto) Sodium Potassium Chloride Carbon Dioxide Anion Gap BUN Creatinine Estimated GFR/1.73 m2 BUN/Creatinine Ratio Glucose Calculated Osmolality Calcium Total Bilirubin AST ALT Alkaline Phosphatase Troponin T Nks-I-Hxxxnwexshr Pept 203 Total Protein Albumin Globulin Albumin/Globulin Ratio Plasma Lactate 2.3 H Orders Category Date Time Status CHEST-PORTABLE [RAD] Stat Exams 05/17/19 17:[address] THORAX W/O CONTRAST [CT] Stat Exams 05/17/19 19:00 Completed BLOOD CULTURE [BLDCUL] Stat Lab 05/17/19 20:21 Results CBC WITH ELECTRONIC DIFF [HEME] Stat Lab 05/17/19 17:55 Completed CMP [COMPREHENSIVE METABOLIC PANEL] [CHEM] Stat Lab 05/17/19 17:55 Completed LACTATE, PLASMA [CHEM] Stat Lab 05/17/19 20:21 Completed PRO B-NATRIURETIC PEPTIDE Stat Lab 05/17/19 17:55 Completed TROPONIN T Stat Lab 05/17/19 17:55 Completed URINALYSIS W/POSS RFLX CULT [URINALYSIS] Stat Lab 05/17/19 21:28 Uncollected 0.9% Sodium Chloride Inj [Ns] 1,000 ml Med 05/17/19 22:14 Active IV 999 mls/hr CefEPIME [Maxipime] 2 gm Med 05/17/19 21:29 Discontinued 0.9% Sodium Chloride Inj [Ns] 100 ml IV NOW Vancomycin 1 gm/Ns Med 05/17/19 21:29 Active 1 gm in 250 ml IV NOW CXR showing cavitary lesion, CT thorax with radiology report stating cavitary lesion is most likely related to infectious process of pna. Pt currently failing out patient tx. admission for IV abx and treatment. Will start Vanc and Maxipime. UA and blood cultures and lactate pending Result Diagrams: 05/17/19 17:55 05/17/19 17:55 - REASSESSMENT Reassessment #1 Status: unchanged (pt doing well, no change. elevated lactate, blood cx and fluids. admit.) - CT/MRI 1 CT Study: Thorax Impression: See EMR Report (EXAM: CT THORAX W/O CONTRAST INDICATION: ShOB TECHNIQUE: This exam was performed using automated exposure control, adjustment of mA or kV according to patient size, and/or use of iterative reconstruction technique. COMPARISON: 09/04/2014 FINDINGS: There is patchy airspace consolidation throughout the entire right lung indicating pneumonia. It is most dense at the right lung base. There is milder consolidation at the left lung base. There is extensive tree-in-bud opacity associated with these consolidations indicating bronchiolitis. There is a masslike density in the right upper lobe anteriorly measuring up to 2.5 x 2.0 cm axially. There is associated cavitation. This is probably a part of the infectious process. There is bronchial mucosal thickening bilaterally and there is mucous plugging at the right lung base. There is no pleural fluid collection and no pneumothorax. There are prominent right hilar lymph nodes that are probably reactive. There is no cardiomegaly. There is also a calcified mediastinal lymph node indicating prior granulomatous disease. Limited views of the upper abdomen are essentially unremarkable. IMPRESSION: 1.Multilobar pneumonia throughout the right lung but worse at the base and milder pneumonia at the left lung base. Please see above discussion. 2.Cavitary lesion in the right upper lobe that is nonspecific but is probably a part of the infectious process. Electronically signed by Kapil Garcia 05/17/2019 9:02 PM) - CONSULTS/PCP/HOSPITALIST Notification #1 *Consult/PCP/Hospitalist*: Dr. Carrillo Time Discussed: 22:38 Consult Disposition: Will see in ED Departure - Departure Date of Disposition Decision: 05/17/19 Time of Disposition Decision: 22:27 DIAGNOSIS: Pneumonia, Elevated serum lactate dehydrogenase, Leukocytosis Disposition: ADMITTED INPATIENT 09 Certified Medical Emergency: Emergent Condition: Stable Referrals and Follow-Ups: Garry Virgen MD [Primary Care Provider] - - Critical Care Note This patient required my direct & personal management of CC.: No Attestation - Physician/ EDGARD Attestation The physician spent face to face time with patient:: Yes Advanced Practice Provider documentation review:: Supervising physician onsite and consulted in the evaluation and care of this patient. The physician did have a face to face encounter with the patient.
--- NOTE | 2019-05-17 17:47 | Diag Imaging Result Doc PS360 ---
EXAM: CHEST-PORTABLE INDICATION: r/o pneumonia TECHNIQUE: One view COMPARISON: 10/03/2017 FINDINGS: There is patchy airspace consolidation in the mid and lower lung zone right that is suspicious for pneumonia. However, there is also interstitial thickening bilaterally suggesting a component of edema. There is no discrete pleural fluid collection or pneumothorax. Cardiac silhouette is unremarkable. IMPRESSION: Interstitial edema bilaterally with more dense patchy airspace consolidation on the right suggesting likely pneumonia. Follow-up is recommended to assure resolution. Electronically signed by Kapil Garcia 05/17/2019 5:45 PM
[2019-05-17 18:17] LABS: BASO# 0.03 X1000 (0.0-0.2); BASO% 0.2 % (0.0-0.8); EOS% 4.9 % (0.0-10.0); HEMATOCRIT 44.1 % (42.0-52.0); IMM GRAN# 0.07 X1000 (0.0-0.04); IMM GRAN% 0.6 % (0.0-0.5); LYMPH% 8.2 % (20.5-51.1); MCH 29.1 PG (27-31); MCHC 31.7 g/dL (33-37); MCV 91.7 FL (81-99); MONO# 0.66 X1000 (0.11-0.59); MONO% 5.4 % (1.7-9.3); MPV 12.6 FL (7.4-10.4); NEUT# 9.82 X1000 (1.4-6.5); NEUT% 80.7 % (42.2-75.2); PLT 171 X1000 (130-400); RBC 4.81 XMIL (4.7-6.1); RDW 15.1 % (11.5-14.5); WBC 12.18 X1000 (4.8-10.8)
[2019-05-17 18:43] LABS: ALB/GLOB RATIO 0.9; ALBUMIN 3.5 g/dL (3.5-5.0); CALCIUM 9.4 mg/dL (8.8-10.2); CREATININE 1.3 mg/dL (0.7-1.2); POTASSIUM 4.1 mmol/L (3.5-5.1); TOTAL BILIRUBIN 0.48 mg/dL (0.20-1.00); TOTAL PROTEIN 7.6 g/dL (6.3-8.3)
--- NOTE | 2019-05-17 21:04 | Diag Imaging Result Doc PS360 ---
EXAM: CT THORAX W/O CONTRAST INDICATION: ShOB TECHNIQUE: This exam was performed using automated exposure control, adjustment of mA or kV according to patient size, and/or use of iterative reconstruction technique. COMPARISON: 09/04/2014 FINDINGS: There is patchy airspace consolidation throughout the entire right lung indicating pneumonia. It is most dense at the right lung base. There is milder consolidation at the left lung base. There is extensive tree-in-bud opacity associated with these consolidations indicating bronchiolitis. There is a masslike density in the right upper lobe anteriorly measuring up to 2.5 x 2.0 cm axially. There is associated cavitation. This is probably a part of the infectious process. There is bronchial mucosal thickening bilaterally and there is mucous plugging at the right lung base. There is no pleural fluid collection and no pneumothorax. There are prominent right hilar lymph nodes that are probably reactive. There is no cardiomegaly. There is also a calcified mediastinal lymph node indicating prior granulomatous disease. Limited views of the upper abdomen are essentially unremarkable. IMPRESSION: 1.Multilobar pneumonia throughout the right lung but worse at the base and milder pneumonia at the left lung base. Please see above discussion. 2.Cavitary lesion in the right upper lobe that is nonspecific but is probably a part of the infectious process. Electronically signed by Kapil Garcia 05/17/2019 9:02 PM
[2019-05-17] MEDS ORDERED: VANCOMYCIN 1 GM/NS 1 GM/250 ML IVPB IV ONE (21:29)
[2019-05-17] MEDS ORDERED: MAXIPIME 2 GM in NS 100 ML IV ONE (21:29)
[2019-05-17] MEDS ORDERED: NS 1,000 ML IV ONE (22:14)
[2019-05-17] MEDS ORDERED: MILK OF MAGNESIA PO PRN (22:49)
[2019-05-17] MEDS ORDERED: NORCO-10 PO PRN (22:49)
[2019-05-17] MEDS ORDERED: ANALGESIC BALM TOP PRN (22:49)
[2019-05-17] MEDS ORDERED: METAMUCIL POWDER PACKET PO PRN (22:49)
[2019-05-17] MEDS ORDERED: PHENERGAN PO PRN (22:49)
[2019-05-17] MEDS ORDERED: VANCOMYCIN IV PER PHARMACY MISC SCH ×2 (23:00)
[2019-05-17] MEDS ORDERED: STARCH PO SCH (23:00)
[2019-05-18] MEDS ORDERED: TYLENOL PO PRN (01:06)
--- NOTE | 2019-05-18 02:27 | HISTORY AND PHYSICAL ---
ADDENDUM: The patient is a 64-year-old male who has a known history of Parkinson's with dementia. He is being evaluated by Home Health ans was noted to have a cough. He had a chest x-ray and was felt to have pneumonia. Unfortunately he has continued to worsen. They felt as though he may have had cavitary lesions. He was brought to the ER tonight. CT demonstrated pneumonia. We are going to admit him to the hospital, IV fluids, antibiotics, oxygen, and we will follow. cc: Nash Carrillo MD
[2019-05-18] MEDS: LOVENOX SUBQ SCH (02:46)
[2019-05-18] MEDS: DOXYCYCLINE 100 MG in NS 250 ML IV SCH ×2 (03:19→13:37)
--- NOTE | 2019-05-18 03:58 | HISTORY AND PHYSICAL ---
CHIEF COMPLAINT: Abnormal x-ray. HISTORY OF PRESENT ILLNESS: Mr. Anderson is a 64-year-old male with a history of Parkinson's sent to the ED by the data transcriber due to abnormal chest x-ray. He has Home Health come out. He has had pneumonia 2 times recently. Chest x-ray showed worsening pneumonia that was multilobular with a cavitary lesion. Apparently he had been declining over the last 2 weeks since symptoms began. Has a productive cough and congestion. No fever. He currently lives with his son. They are seeking placement. Was recently taking Levaquin and clindamycin, I believe, but has had no improvement. Chest CT showed multilobular pneumonia throughout the right lung, but worse at the base, and milder pneumonia at the left base, also a cavitary lesion in the right upper lobe that is nonspecific, probably part of the infection process. The patient will be admitted for IV antibiotics and further evaluation and treatment. PAST MEDICAL HISTORY: Bipolar disorder, schizophrenia, Parkinson's, metabolic syndrome, hypertension and pneumonia. PREVIOUS SURGICAL HISTORY: Back surgery. SOCIAL HISTORY: Retired security professionals. Lives with his son. No tobacco, alcohol or illicit drugs. They are working on placement, as his Parkinson's has progressed. FAMILY HISTORY: Diabetes and hypertension. Mother from natural causes. ALLERGIES: No known drug allergies. HOME MEDICATIONS: Clindamycin 300 mg p.o. t.i.d., Levaquin 500 mg p.o. daily, allopurinol 100 mg p.o. daily, diazepam 10 mg p.o. at bedtime, Depakote 500 mg p.o. daily, vitamin D2 5000 units as directed, Doyle 10 q.6 p.r.n., milk of magnesia 30 mL p.o. at bedtime, olanzapine 7.5 p.o. b.i.d., Mirapex 0.125 p.o. t.i.d., prazosin 2 mg p.o. at bedtime, promethazine 25 mg p.o. q.4-6 p.r.n., Metamucil 1 dose p.o. p.r.n., Colace 2-in-1 tablet one tablet p.o. b.i.d., Strattera 10 mg p.o. daily, Thick-It in drink, Ultram 50 mg p.o. at bedtime. REVIEW OF SYSTEMS: A 14-point review of systems conducted with the patient. Pertinent positives listed above in the HPI. Full review of systems could not be conducted as he is only oriented to person. PHYSICAL EXAMINATION: VITAL SIGNS: Temperature 97.2, pulse 67, respirations 13, blood pressure 155/105, oxygen saturation 97% on 2 L nasal cannula. GENERAL: Demented 64-year-old male lying in the ER stretcher. Son is at bedside. He is in no acute distress. HEENT: Head is atraumatic, normocephalic. Pupils equal, round, reactive to light. Extraocular eye movements intact. Sclerae are anicteric. Conjunctivae are pink. Oral mucosa is mildly dry. NECK: Supple, no JVD, no thyromegaly. Trachea is midline. No cervical lymphadenopathy. CARDIAC: S1 and S2 appreciated. No murmurs, gallops or rubs. LUNGS: Crepitations noted throughout bilateral lung moeller. No wheezing. Symmetric rise and fall with respirations. ABDOMEN: Protuberant. Soft, nondistended, nontender. Bowel sounds present in all 4 quadrants. Normoactive. No pulsatile masses or organomegaly. EXTREMITIES: No clubbing, cyanosis or edema. Two-plus pedal pulses bilaterally. GENITOURINARY: No bladder distention. Patient voids. Otherwise deferred. NEUROLOGICAL: Oriented only to person. Cranial nerves 2-12 appear to be grossly intact. He is pleasant and confused. DIAGNOSTIC DATA: CT of the chest shows a multilobular pneumonia throughout the right lung, but worse at the base. Mildly pneumonia at the left lung base and a cavitary lesion in the right upper lobe, nonspecific, but probably part of the infectious process. LABORATORY DATA: WBC 12.18, hemoglobin 14, hematocrit 44.1, platelet count 171,000. Sodium 143, potassium 4.1, chloride 102, carbon dioxide 29, BUN 27, creatinine 1.3, glucose 94. ASSESSMENT AND PLAN: 1. Multilobular pneumonia with failed outpatient treatment x2 with different antibiotics. Will treat patient with IV vancomycin, Maxipime and doxycycline to cover atypicals, pseudomonas and MRSA. Blood cultures are pending. Patient was also noted to have a cavitary lesion as likely part of the infectious process, however, will send a QuantiFERON-TB test off. 2. Parkinson's, aware. Patient has been declining. They are looking for placement. Will consult Publication Specialist to see if we can help facilitate that. 3. Acute kidney injury. Will give fluids and recheck laboratory data. 4. Dementia. Continue home medications. 5. Hypertension. Continue home medications. 6. Further recommendations per patient's clinical course. PRIMARY CARE PROVIDER: Garry Virgen MD Dictated by ELIZA Blackwell for Nash Carrillo MD cc: ELIZA Blackwell MD Kirk L. Jackson, MD
[2019-05-18] MEDS ORDERED: VANCOMYCIN 1,550 MG in NS 250 ML IV ONE (04:30)
[2019-05-18 04:46] LABS: BASO# 0.04 X1000 (0.0-0.2); BASO% 0.3 % (0.0-0.8); EOS% 5.9 % (0.0-10.0); HEMATOCRIT 41.1 % (42.0-52.0); HEMOGLOBIN 13.2 g/dL (14.0-18.0); IMM GRAN# 0.08 X1000 (0.0-0.04); IMM GRAN% 0.7 % (0.0-0.5); LYMPH# 1.36 X1000 (1.2-3.4); LYMPH% 11.5 % (20.5-51.1); MCH 29.3 PG (27-31); MCHC 32.1 g/dL (33-37); MCV 91.3 FL (81-99); MONO# 0.72 X1000 (0.11-0.59); MONO% 6.1 % (1.7-9.3); MPV 12.6 FL (7.4-10.4); NEUT# 8.89 X1000 (1.4-6.5); NEUT% 75.5 % (42.2-75.2); PLT 162 X1000 (130-400); RDW 14.9 % (11.5-14.5); WBC 11.79 X1000 (4.8-10.8)
[2019-05-18 05:15] LABS: AGAP 11; BUN 24 mg/dL (8-22); CALCIUM 8.9 mg/dL (8.8-10.2); CHLORIDE 107 mmol/L (98-107); COSMO 292; CREATININE 1.2 mg/dL (0.7-1.2); ESTIMATED GFR > 60; GLUCOSE 93 mg/dL (70-104); POTASSIUM 3.6 mmol/L (3.5-5.1); SODIUM 145 mmol/L (136-145); TCO2 27 mmol/L (25-35)
[2019-05-18 09:18] LABS: URINE SOURCE CATH
[2019-05-18 09:21] LABS: BILIRUBIN URINE NEGATIVE (NEGATIVE); BLOOD URINE NEGATIVE (NEGATIVE); COLOR YELLOW; GLUCOSE URINE NEGATIVE (NEGATIVE); KETONE URINE 10 mg/dL (NEGATIVE); LEUKOCYTES URINE NEGATIVE (NEGATIVE); NITRITE URINE NEGATIVE (NEGATIVE); PROTEIN URINE 50 mg/dL (NEGATIVE); SP GRAVITY URINE 1.037; TURBIDITY URINE CLEAR (CLEAR); UROBILINOGEN URINE NORMAL (NORMAL)
[2019-05-18 09:23] LABS: UR EPITHELIAL CELLS <10 /HPF (<10); URINE BACTERIA NEGATIVE /HPF; URINE RBC <10 /HPF (<10); URINE WBC <10 /HPF (<10)
[2019-05-18] MEDS: NS 1,000 ML IV SCH ×2 (09:25→20:14)
[2019-05-18] MEDS: DEPAKOTE PO SCH ×2 (09:28→21:13)
[2019-05-18] MEDS: ZOLOFT PO SCH (12:04)
[2019-05-18] MEDS: ZYPREXA PO SCH ×2 (12:04→21:13)
[2019-05-18] MEDS: MIRAPEX PO SCH ×3 (12:05→21:13)
[2019-05-18] MEDS: ZYLOPRIM PO SCH (12:06)
[2019-05-18] MEDS: PERICOLACE PO SCH ×2 (12:06→21:14)
[2019-05-18] MEDS: MAXIPIME 1 GM in NS 50 ML IV SCH ×2 (12:07→21:31)
[2019-05-18] MEDS ORDERED: DUONEB (A & A) INH PRN (17:26)
[2019-05-18] MEDS ORDERED: MUCOMYST 20% INH ONE (17:27)
[2019-05-18] MEDS ORDERED: DUONEB (A & A) INH SCH (17:30)
--- NOTE | 2019-05-18 17:36 | EKG Report ---
Test Performed on : 05/18/2019 4:22:19 PM Test Reason : Vtach Blood Pressure : / mmHG Vent. Rate : 065 BPM Atrial Rate : 065 BPM P-R Int : 178 ms QRS Dur : 088 ms QT Int : 402 ms P-R-T Axes : 069 065 039 degrees QTc Int : 418 ms Sinus rhythm. with premature atrial complexes. Otherwise normal ECG When compared with ECG of 03-OCT-2017 12:20, premature atrial complexes. are now present Confirmed by Chinedu LAMAR, Shashi Benites ([id number]) on 05/20/2019 8:13:40 AM
--- NOTE | 2019-05-18 17:42 | PROGRESS NOTE ---
DATE: 05/18/2019 SUBJECTIVE: The patient has a lot of cough and congestion. I think there is a aspiration risk issue here. OBJECTIVE: Vital signs: Blood pressure 116/63, heart rate of 65, respiratory rate of 16, temperature 98.5 degrees. Cardiovascular: Regular rate and rhythm. Pulmonary: Bilateral breath sounds. He definitely had rhonchi and wheezing. GI: Soft, nontender, nondistended. Bowel sounds are positive. LABORATORY: White count 11, hemoglobin and hematocrit 13 and 41, platelets 162,000. Basic was normal. PROBLEM LIST: 1. Multilobar pneumonia. We will continue vancomycin and Maxipime. Doxycycline will cover atypicals and Pseudomonas. I think there is a concern over aspiration and cavitary lesion, anaerobic coverage, so I am going to add Flagyl and go ahead and consult Pulmonary. QuantiFERON has been sent off which is appropriate. We will check immunoglobulins. 2. Parkinsonism. We will continue treatment and follow. Social Work will continue to work with him. We will need to work on pulmonary toilet as well. 3. Disposition. Pending his clinical status. 4. Ventricular tachycardia. We will continue to monitor. He had an episode. I am not sure if that was related to hypoxia. He did not have his oxygen on when I was in the room. Baseline confusion there. We will also try to get a speech evaluation and see if he is at risk for aspiration. cc: Jordon Heredia MD
[2019-05-18 18:10] LABS: MAGNESIUM 1.6 mg/dL (1.5-2.7); POTASSIUM 3.6 mmol/L (3.5-5.1)
[2019-05-18] MEDS: ATROVENT NEB INH SCH ×2 (18:11→23:00)
[2019-05-18] MEDS: XOPENEX NEB INH SCH ×2 (18:11→23:00)
[2019-05-18] MEDS: FLAGYL 500 MG/NS 500 MG/100 ML IVPB IV SCH ×2 (20:19→21:12)
[2019-05-18] MEDS: PROTONIX IV SCH (20:20)
[2019-05-18] MEDS: MINIPRESS PO SCH (21:00)
[2019-05-18] MEDS: ULTRAM PO SCH (21:14)
[2019-05-18] MEDS: VALIUM PO SCH (21:14)
[2019-05-18] MEDS: MUCOMYST 20% INH SCH (22:59)
[2019-05-19] MEDS: ATROVENT NEB INH SCH ×4 (03:31→22:00)
[2019-05-19] MEDS: LOVENOX SUBQ SCH (04:19)
[2019-05-19] MEDS: DOXYCYCLINE 100 MG in NS 250 ML IV SCH ×2 (04:19→18:45)
[2019-05-19] MEDS: NS 1,000 ML IV SCH ×2 (04:23→18:46)
[2019-05-19 05:56] LABS: BASO# 0.03 X1000 (0.0-0.2); BASO% 0.3 % (0.0-0.8); EOS# 0.46 X1000 (0.0-0.7); EOS% 5.1 % (0.0-10.0); HEMATOCRIT 38.9 % (42.0-52.0); HEMOGLOBIN 12.3 g/dL (14.0-18.0); IMM GRAN# 0.08 X1000 (0.0-0.04); IMM GRAN% 0.9 % (0.0-0.5); LYMPH# 1.44 X1000 (1.2-3.4); LYMPH% 16.1 % (20.5-51.1); MCH 29.1 PG (27-31); MCHC 31.6 g/dL (33-37); MCV 92.2 FL (81-99); MONO# 0.64 X1000 (0.11-0.59); MONO% 7.2 % (1.7-9.3); NEUT# 6.29 X1000 (1.4-6.5); NEUT% 70.4 % (42.2-75.2); PLT 146 X1000 (130-400); RBC 4.22 XMIL (4.7-6.1); RDW 14.9 % (11.5-14.5); WBC 8.94 X1000 (4.8-10.8)
[2019-05-19] MEDS: FLAGYL 500 MG/NS 500 MG/100 ML IVPB IV SCH ×3 (06:13→18:45)
[2019-05-19 06:28] LABS: AGAP 11; BUN 14 mg/dL (8-22); CALCIUM 8.6 mg/dL (8.8-10.2); CHLORIDE 108 mmol/L (98-107); COSMO 284; ESTIMATED GFR > 60; GLUCOSE 80 mg/dL (70-104); POTASSIUM 3.4 mmol/L (3.5-5.1); SODIUM 143 mmol/L (136-145); TCO2 24 mmol/L (25-35)
[2019-05-19] MEDS: XOPENEX NEB INH SCH ×3 (08:21→22:00)
[2019-05-19] MEDS: MUCOMYST 20% INH SCH ×2 (08:22→21:59)
[2019-05-19] MEDS: MIRAPEX PO SCH ×3 (09:20→21:54)
[2019-05-19] MEDS: PERICOLACE PO SCH ×2 (09:21→21:54)
[2019-05-19] MEDS: ZYPREXA PO SCH ×2 (09:21→21:52)
[2019-05-19] MEDS: ZOLOFT PO SCH (09:22)
[2019-05-19] MEDS: DEPAKOTE PO SCH ×2 (09:22→21:54)
[2019-05-19] MEDS: ZYLOPRIM PO SCH (09:22)
[2019-05-19] MEDS: MAXIPIME 1 GM in NS 50 ML IV SCH ×2 (09:23→21:52)
[2019-05-19] MEDS: VANCOMYCIN 2,250 MG in NS 500 ML IV SCH (09:24)
--- NOTE | 2019-05-19 15:23 | PROGRESS NOTE ---
DATE: 05/19/2019 SUBJECTIVE: The patient is still very weak and tired. He has kind of cough coryza kind of symptoms. OBJECTIVE: Blood pressure 113/54, heart rate 65, respiratory 16, temperature 97.7 degrees and 99% on 4 L.Cardiovascular: Regular rate and rhythm. Pulmonary: Bilateral breath sounds. Clear to auscultation. GI: Soft, nontender, and nondistended. Bowel sounds are positive. Pulmonary: He had rhonchi and wheezing. LABORATORY DATA: White count is 8 which is a decrease. Hemoglobin and hematocrit 12 and 38, platelets 146,000, and potassium 3.4. PROBLEM LIST: 1. Multilobar pneumonia. He is currently on vancomycin and Maxipime. I have added Flagyl and Pulmonary has been consulted. QuantiFERON is pending. 2. Parkinsonism. We will continue his current medications. 3. History of ventricular tachycardia. I do not think he has had any more episodes, but we will keep his potassium close to 4 as possible, and magnesium close to 2. DISPOSITION: I think he is from a long-term rehab, but I do not think we are quite there yet and trying to figure out what we are going to do with him long-term. cc: Jordon Heredia MD
[2019-05-19] MEDS: POTASSIUM CHLORIDE 20 MEQ/SWI 20 MEQ/100 ML IVPB IV SCH ×2 (16:57→17:01)
[2019-05-19] MEDS: PROTONIX IV SCH (17:02)
[2019-05-19] MEDS: MINIPRESS PO SCH (21:53)
[2019-05-19] MEDS: VALIUM PO SCH (21:54)
[2019-05-19] MEDS: ULTRAM PO SCH (21:54)
--- NOTE | 2019-05-19 22:01 | PULMONOLOGY CONSULTATION ---
DATE: 05/19/2019 REQUESTING PHYSICIAN: Jordon Heredia MD REASON FOR CONSULTATION: Respiratory failure and pneumonia. HISTORY OF PRESENT ILLNESS: Mr. Anderson is a 64-year-old male with multiple medical problems including dementia, Parkinson disease, schizophrenia and bipolar disorder, who has been living with his son for approximately 5 years. By description, he has had some progressive decline over that period of time. The patient is currently followed by home health (Dr. Virgen indicated that he was on hospice). He has had difficulty with worsening pneumonia. The patient underwent a CT scan which revealed patchy consolidation throughout the right lung, with a masslike density in the right upper lobe with an associated cavity. The patient has been admitted to the hospital for additional evaluation and treatment. PAST MEDICAL HISTORY: 1. Parkinson disease. 2. Dementia. 3. Bipolar disorder/schizophrenia. 4. Hypertension. 5. History of back surgery. 6. History of chewing and swallowing problems, currently using Thick-It in all liquids. 7. History of seizure disorder. 8. History of nephrolithiasis. SOCIAL HISTORY: The patient previously worked as a electronic systems security assessment. He has a [id number] history for tobacco. No alcohol use listed. FAMILY HISTORY: Unknown. REVIEW OF SYSTEMS: Notable for generalized weakness, some muscle wasting in his hands, progressive dysphagia, cough and dyspnea. PHYSICAL EXAMINATION: Physical exam reveals a chronically ill-appearing male who appears older than his stated age of 64. He has been afebrile for the last 24 hours. Blood pressure 106/61, heart rate 68, respiratory rate 16, oxygen saturation 94% on nasal cannula.HEENT: Pupils are equal and reactive. Oropharynx is clear. Neck is supple. Chest reveals scattered rhonchi bilaterally. Cardiac exam: S1, S2. Abdomen is soft. Extremities reveal trace edema with some muscle wasting in his hands. DIAGNOSTIC DATA: CT scan as per HPI. LABORATORY DATA: White blood count on admission 12.12, hemoglobin 14.0, platelet count 171,000. Sodium 143, potassium 3.4, chloride 108, bicarbonate 24, BUN 14, creatinine 1.0. IMPRESSION: A 64-year-old with: 1. Dysphagia. 2. Aspiration pneumonia. 3. Small lung abscess. 4. Hypoxemic respiratory failure. 5. Parkinson disease. 6. Dementia. DISCUSSION: A 64-year-old with problems outlined above. The patient is likely having progressive dysphagia associated with advancing Parkinson disease. The small area of cavitation in the upper lobe most likely represents a small lung abscess. Differential would also include a cavitating bronchogenic carcinoma, and much less likely tuberculosis. The patient did have a CT scan of the thorax in 08/2014 which did not reveal any stigmata to suggest prior TB. RECOMMENDATIONS: 1. Agree with plans to check a QuantiFERON Gold TB test. If this is negative, would not pursue additional TB evaluation. 2. Continue current antibiotics. 3. Agree with Speech Therapy evaluation. Their recommendations have been reviewed. Speech Therapy recommends proceeding with a modified barium swallow, which will be ordered. 4. Agree with plans for long-term placement. His disease is only likely to progress from this juncture. cc: Michael Smith MD
[2019-05-20] MEDS: FLAGYL 500 MG/NS 500 MG/100 ML IVPB IV SCH ×6 (01:14→23:22)
[2019-05-20] MEDS: LOVENOX SUBQ SCH (01:14)
[2019-05-20] MEDS: ATROVENT NEB INH SCH ×4 (03:31→21:52)
[2019-05-20] MEDS: DOXYCYCLINE 100 MG in NS 250 ML IV SCH (04:55)
[2019-05-20 05:44] LABS: BASO# 0.02 X1000 (0.0-0.2); BASO% 0.3 % (0.0-0.8); EOS# 0.34 X1000 (0.0-0.7); EOS% 4.3 % (0.0-10.0); HEMATOCRIT 36.7 % (42.0-52.0); HEMOGLOBIN 11.9 g/dL (14.0-18.0); IMM GRAN# 0.07 X1000 (0.0-0.04); IMM GRAN% 0.9 % (0.0-0.5); LYMPH# 1.17 X1000 (1.2-3.4); LYMPH% 14.9 % (20.5-51.1); MCH 29.5 PG (27-31); MCHC 32.4 g/dL (33-37); MCV 91.1 FL (81-99); MONO# 0.49 X1000 (0.11-0.59); MONO% 6.2 % (1.7-9.3); MPV 13.1 FL (7.4-10.4); NEUT# 5.78 X1000 (1.4-6.5); NEUT% 73.4 % (42.2-75.2); PLT 155 X1000 (130-400); RBC 4.03 XMIL (4.7-6.1); WBC 7.87 X1000 (4.8-10.8)
[2019-05-20 06:39] LABS: AGAP 12; BUN 11 mg/dL (8-22); CALCIUM 8.3 mg/dL (8.8-10.2); CHLORIDE 109 mmol/L (98-107); COSMO 284; CREATININE 0.8 mg/dL (0.7-1.2); ESTIMATED GFR > 60; GLUCOSE 91 mg/dL (70-104); POTASSIUM 3.8 mmol/L (3.5-5.1); SODIUM 143 mmol/L (136-145); TCO2 22 mmol/L (25-35)
[2019-05-20] MEDS: NS 1,000 ML IV SCH (07:00)
[2019-05-20] MEDS: VANCOMYCIN 2,250 MG in NS 500 ML IV SCH (07:00)
[2019-05-20] MEDS: MUCOMYST 20% INH SCH ×2 (10:56→21:52)
[2019-05-20] MEDS: XOPENEX NEB INH SCH ×3 (10:57→21:52)
[2019-05-20] MEDS: MAXIPIME 1 GM in NS 50 ML IV SCH (13:48)
[2019-05-20] MEDS: MIRAPEX PO SCH ×2 (14:30→15:55)
[2019-05-20] MEDS: ZYPREXA PO SCH (14:30)
--- NOTE | 2019-05-20 14:43 | Diag Imaging Result Doc PS360 ---
EXAM: BA SWALLOW W/VIDEO SPEECH THER 05/20/2019 HISTORY: recurrent pneumonia TECHNIQUE: Modified barium swallow, 87 images, 18 seconds fluoroscopy time, seven mGy. COMMENT: The hypopharynx including the piriform sinuses and vallecula are somewhat patulous. The airway is not well protected and there was aspiration on both thin and pudding consistency barium. No cough reflex was demonstrated. IMPRESSION: Aspiration. Electronically signed by Michael Han 05/20/2019 2:41 PM
--- NOTE | 2019-05-20 14:54 | Diag Imaging Result Doc PS360 ---
CHEST-2 VIEWS - 05/20/2019 INDICATION: hypoxia COMPARISON: 05/17/2019 FINDINGS: There has been significant improvement in the multilobar reticular nodular infiltrates bilaterally. There is still some residual infiltrate throughout the right lung and left lung base. Heart size remains top normal. No pneumothorax or large pleural effusion. IMPRESSION: Significant improvement in the extensive bilateral reticulonodular infiltrate suggesting atypical pneumonia. Electronically signed by Arya Sinha 05/20/2019 2:51 PM
[2019-05-20] MEDS: DEPAKOTE PO SCH (15:54)
[2019-05-20] MEDS: ZOLOFT PO SCH (15:55)
[2019-05-20] MEDS: ZYLOPRIM PO SCH (15:55)
[2019-05-20] MEDS: PERICOLACE PO SCH (15:55)
[2019-05-20] MEDS ORDERED: OFIRMEV 1000 MG/ISOTONIC SOLN 1,000 MG/100 ML BOTTLE IV PRN (15:56)
[2019-05-20] MEDS ORDERED: LASIX IV ONE (15:58)
[2019-05-20] MEDS ORDERED: CLINIMIX E 4.25%-5% SOLUTION 1,000 ML IV SCH (16:00)
[2019-05-20] MEDS: CLINIMIX E 4.25%-5% SOLUTION 1,000 ML IV SCH (16:31)
[2019-05-20 16:34] LABS: ALLEN TEST YES; BLOOD TYPE ARTERIAL; HCO3-(ACT) 24.1 mmoll (20.0-26.0); METHB 1.1 % (0.0-1.5); O2(CT) 16.3 mL/dL (15.0-23.0); O2HB 94.8 % (95.0-99.0); PCO2(98.6) 42 mmHg (35-45); PO2(98.6) 73 mmHg (60-100); SAMPLE BLOOD; SAO2 97.8 % (95.0-100.0); THB 12.2 g/dL (11.5-17.4); pH(98.6) 7.37 (7.35-7.45)
[2019-05-20] MEDS: SODIUM CHLORIDE 0.9% INJ SCH (16:34)
[2019-05-20] MEDS: PROTONIX IV SCH (16:34)
[2019-05-20 16:35] LABS: MODALITY CANNULA
[2019-05-20] MEDS: DEPACON 500 MG in NS 50 ML IV SCH (17:19)
--- NOTE | 2019-05-20 17:20 | PROGRESS NOTE ---
DATE: 05/20/2019 SUBJECTIVE: Patient has no major complaints. OBJECTIVE: Vital Signs: Blood pressure 101/54, heart rate of 66, respiratory rate of 28, temperature 97.5 degrees, 90% on 2 L. Cardiovascular: Regular rate and rhythm. Pulmonary: Bilateral breath sounds, diminished at the bases. He does have a lot of rhonchi, and I would consider it to be upper airway noise in any case. GI: Soft, nontender, nondistended. Bowel sounds were positive. IMAGING: Chest x-ray actually showed great clearing of his disease. Chest x-ray looks much improved, but he still has got some patchy infiltrates in his right upper lobe. I do think he is aspirating, and it turns out he is aspirating. LABORATORY DATA: White count 7, hemoglobin and hematocrit 11 and 36, platelets 155,000. Basic was normal. PROBLEM LIST: 1. Aspiration-type pneumonia. He is on cefepime, day 3. He is on Flagyl day 3. We will continue pulmonary toilet, but he has an aspiration type pneumonia. I think that is what is going on. Dr. Smith is following. I am going to bump up his cefepime. He is a fairly big lindy, and he has normal kidney function. 2. Parkinsonism. We will continue his regular medications once we have established alternative method of feeding him or p.o. 3. History of ventricular tachycardia. He seems to be doing okay. We will keep a close eye on it. DISPOSITION: Obviously n.p.o. We will get a GI consultation for PEG placement, and we will continue to follow. I am going to switch all of his medications to IV as much as possible. Hold anticoagulation and continue to monitor. I greatly appreciate Dr. Smith following up on that, ordering the modified barium, and then now we are able to progress with the PEG. cc: Jordon Heredia MD
[2019-05-20] MEDS: MAXIPIME 2 GM in NS 100 ML IV SCH (22:17)
[2019-05-21] MEDS: DEPACON 500 MG in NS 50 ML IV SCH ×2 (03:39→16:07)
[2019-05-21] MEDS: ATROVENT NEB INH SCH ×4 (03:51→22:00)
[2019-05-21] MEDS: FLAGYL 500 MG/NS 500 MG/100 ML IVPB IV SCH ×3 (05:10→17:43)
[2019-05-21] MEDS: CLINIMIX E 4.25%-5% SOLUTION 1,000 ML IV SCH ×2 (05:26→07:22)
--- NOTE | 2019-05-21 05:36 | PULMONOLOGY PROGRESS NOTE ---
DATE: 05/20/2019 SUBJECTIVE: The patient is awake and alert. Family member is at the bedside discussing possible PEG tube placement. OBJECTIVE: Vital Signs: The patient is afebrile. Oxygen saturation 90% on 2 L per nasal cannula. Blood pressure 111/57, heart rate 65, respiratory rate 17. HEENT: Pupils are equal and reactive. Oropharynx appears clear. Neck: Supple. Chest: Reveals occasional rhonchi bilaterally. Cardiac: S1, S2. Abdomen: Soft. Extremities: Reveal muscle weakness bilaterally. LABORATORIES: Chest x-ray reveals significant decrease in bilateral infiltrates. Modified barium swallow reveals aspiration of both thin and pudding consistency barium. The patient did not cough without aspiration. IMPRESSION: A 64-year-old with: 1. Aspiration pneumonia. 2. Aspiration on thin and pudding consistency barium. 3. Lung abscess, which is small. 4. Hypoxemic respiratory failure. 5. Parkinson disease. 6. Dementia. DISCUSSION: A 64-year-old with problems outlined above. Family reports patient has previously stated he did not want a feeding tube. He has had a progressive downhill course recently. Family and patient are to decide if he would like a feeding tube or if he would like to continue to eat an aspirate. Ongoing aspiration will likely be a terminal event and he will likely from aspiration pneumonia if a PEG tube is not placed. If a PEG tube is not placed then hospice is recommended. I believe he was already on hospice prior to this admission. cc: Michael Smith MD
[2019-05-21 06:39] LABS: BASO# 0.03 X1000 (0.0-0.2); BASO% 0.3 % (0.0-0.8); EOS# 0.39 X1000 (0.0-0.7); EOS% 4.1 % (0.0-10.0); HEMATOCRIT 41.4 % (42.0-52.0); HEMOGLOBIN 13.1 g/dL (14.0-18.0); IMM GRAN# 0.11 X1000 (0.0-0.04); IMM GRAN% 1.2 % (0.0-0.5); LYMPH% 12.6 % (20.5-51.1); MCH 28.8 PG (27-31); MCHC 31.6 g/dL (33-37); MONO# 0.86 X1000 (0.11-0.59); MPV 12.8 FL (7.4-10.4); NEUT# 6.95 X1000 (1.4-6.5); NEUT% 72.8 % (42.2-75.2); PLT 201 X1000 (130-400); RBC 4.55 XMIL (4.7-6.1); RDW 15.2 % (11.5-14.5); WBC 9.54 X1000 (4.8-10.8)
[2019-05-21 07:02] LABS: AGAP 11; BUN 12 mg/dL (8-22); CHLORIDE 106 mmol/L (98-107); COSMO 288; CREATININE 0.9 mg/dL (0.7-1.2); ESTIMATED GFR > 60; GLUCOSE 90 mg/dL (70-104); POTASSIUM 3.7 mmol/L (3.5-5.1); SODIUM 145 mmol/L (136-145); TCO2 28 mmol/L (25-35)
--- NOTE | 2019-05-21 08:24 | PROGRESS NOTE ---
DATE: 05/21/2019 SUBJECTIVE: He was sleeping, easy to arouse. The nursing staff states that he slept all day yesterday and slept through the night. OBJECTIVE: Vital signs: Temperature 97.7 degrees, pulse 65, respirations 22, blood pressure 98/48. It looks like his blood pressures have been between 98 and 126/48 to 75. HEENT: Pupils are equal and round. Lungs: Clear in all lung moeller. Cardiovascular: Regular rhythm and rate without murmur or S3. Urine output was 4200 mL. ASSESSMENT AND PLAN: 1. Aspiration pneumonia. He does not want a feeding tube. Continue present treatment. 2. He had shown aspiration when they did the barium and he has aspiration on thin and pudding consistency barium. 3. Lung abscess which is small. 4. Hypoxemic respiratory failure which is improving. 5. Parkinson disease. 6. Dementia. REVIEW OF ORDERS: He is getting acetylcysteine 20% 3 mL inhalation b.i.d., albuterol ipratropium q.2 hours p.r.n., Clinimix at 70 mL an hour, Flagyl 500 mg IV q.6, ipratropium bromide 0.5 mg inhalation q.6 hours, cefepime 2 g IV q.12, Protonix 40 mg IV q.24 hours, valproate sodium 500 mg IV q.12, vancomycin 2.25 g IV q.24 hours. REVIEW OF LABORATORY DATA: This morning, white count 9540, hematocrit is 41, platelet count is 201,000. Sodium 145, potassium 3.7, chloride 106, BUN 12, creatinine 0.9. cc: Scottie Wilson MD
[2019-05-21] MEDS ORDERED: VITAMIN D PO SCH (09:00)
[2019-05-21] MEDS: XOPENEX NEB INH SCH ×3 (10:20→22:00)
[2019-05-21] MEDS: MUCOMYST 20% INH SCH ×2 (10:25→22:00)
[2019-05-21] MEDS: MAXIPIME 2 GM in NS 100 ML IV SCH ×2 (11:01→23:23)
[2019-05-21] MEDS ORDERED: HALDOL IM ONE (14:23)
[2019-05-21] MEDS: VANCOMYCIN 2 GM in NS 500 ML IV SCH (17:18)
[2019-05-21] MEDS: PROTONIX IV SCH (17:44)
[2019-05-22] MEDS: FLAGYL 500 MG/NS 500 MG/100 ML IVPB IV SCH ×5 (00:20→23:34)
[2019-05-22] MEDS: ATROVENT NEB INH SCH ×4 (03:50→21:12)
[2019-05-22] MEDS: DEPACON 500 MG in NS 50 ML IV SCH ×2 (03:58→17:26)
[2019-05-22 06:04] LABS: BASO# 0.06 X1000 (0.0-0.2); BASO% 0.6 % (0.0-0.8); EOS# 0.43 X1000 (0.0-0.7); EOS% 4.3 % (0.0-10.0); HEMATOCRIT 39.9 % (42.0-52.0); HEMOGLOBIN 12.7 g/dL (14.0-18.0); IMM GRAN# 0.13 X1000 (0.0-0.04); IMM GRAN% 1.3 % (0.0-0.5); LYMPH# 1.23 X1000 (1.2-3.4); LYMPH% 12.3 % (20.5-51.1); MCH 29.1 PG (27-31); MCHC 31.8 g/dL (33-37); MCV 91.5 FL (81-99); MONO# 0.98 X1000 (0.11-0.59); MONO% 9.8 % (1.7-9.3); MPV 12.6 FL (7.4-10.4); NEUT% 71.7 % (42.2-75.2); PLT 188 X1000 (130-400); RBC 4.36 XMIL (4.7-6.1); RDW 15.4 % (11.5-14.5); WBC 10.03 X1000 (4.8-10.8)
[2019-05-22 06:47] LABS: AGAP 12; BUN 17 mg/dL (8-22); CALCIUM 9.1 mg/dL (8.8-10.2); CHLORIDE 104 mmol/L (98-107); COSMO 283; CREATININE 0.8 mg/dL (0.7-1.2); ESTIMATED GFR > 60; GLUCOSE 100 mg/dL (70-104); POTASSIUM 4.6 mmol/L (3.5-5.1); SODIUM 141 mmol/L (136-145); TCO2 25 mmol/L (25-35)
--- NOTE | 2019-05-22 07:20 | PULMONOLOGY PROGRESS NOTE ---
DATE: 05/21/2019 SUBJECTIVE: The patient is awake, alert, and without complaints. He is asking to go home. He has a slightly wet cough. OBJECTIVE: Vital Signs: The patient has been afebrile for the last 24 hours. Blood pressure 129/82, heart rate 54, respiratory rate 16, oxygen saturation 97% on nasal cannula. HEENT: Pupils are equal and reactive. Oropharynx is clear. Neck: Neck is supple. Chest: Chest reveals occasional rhonchi bilaterally. Cardiac: S1-S2. Abdomen: Soft. Extremities: Reveal 1+ tissue edema. IMPRESSION: A 64-year-old, with: 1. Parkinson's disease, dementia, small lung abscess, aspiration on thin and thick pudding- consistency barium. 2. Hypoxemic respiratory failure. DISCUSSION: A 64-year-old, with problems outlined above. According to the patient, he does not want a PEG tube. He is likely to have continued aspiration and a continued downhill course. PLAN: 1. Continue current treatment regimen. 2. Consider discharge to a long-term skilled facility with hospice. cc: Michael Smith MD
[2019-05-22] MEDS: MAXIPIME 2 GM in NS 100 ML IV SCH ×2 (10:43→22:09)
[2019-05-22] MEDS: CLINIMIX E 4.25%-5% SOLUTION 1,000 ML IV SCH ×2 (11:20→12:14)
[2019-05-22] MEDS: MUCOMYST 20% INH SCH ×2 (11:32→21:12)
[2019-05-22] MEDS: XOPENEX NEB INH SCH ×3 (11:32→21:12)
[2019-05-22] MEDS: VANCOMYCIN 2 GM in NS 500 ML IV SCH (14:57)
[2019-05-22] MEDS: SODIUM CHLORIDE 0.9% INJ SCH (17:26)
[2019-05-22] MEDS: PROTONIX IV SCH (17:26)
--- NOTE | 2019-05-22 19:40 | PROGRESS NOTE ---
DATE: 05/22/2019 SUBJECTIVE: Patient was found to be sleeping comfortably in his bed. I woke him up, and he told me that he was feeling okay and was not having any acute issues. OBJECTIVE: Vital signs: Temperature 98.3 degrees, pulse 55 per minute, respiratory rate 18 per minute, blood pressure 119/50, pulse ox 94% on 2 liters of oxygen via nasal cannula. General: Patient is alert and oriented x3. He does appear to be forgetful but otherwise seems to be oriented. Cardiovascular System: First and second heart sounds are audible without any murmurs or gallops. Respiratory System: Bilateral lung air entry is moderately decreased, but there are no rales or rhonchi present on auscultation. Gastrointestinal: Abdomen is soft and nondistended. Normal bowel sounds are present. DIAGNOSTIC DATA: CBC was noted as nondiagnostic and BMP was also found to be normal. IMPRESSION: 1. Multilobar pneumonia that is most likely secondary to aspiration with small lung abscess. 2. Parkinsonism. 3. Hypoxemic respiratory failure secondary to pneumonia that has now improved. 4. Dementia. PLAN: The patient will be continued on IV antibiotics including vancomycin and cefepime along with metronidazole. We will continue giving him bronchodilators and supportive care. He seems to have generalized weakness and deconditioning because of which palliative care consult has been obtained. He will need prolonged physical therapy to get back to relatively independent status, however. cc: Ramirez Multani MD
[2019-05-23] MEDS: DEPACON 500 MG in NS 50 ML IV SCH ×2 (05:11→16:44)
[2019-05-23] MEDS: FLAGYL 500 MG/NS 500 MG/100 ML IVPB IV SCH ×4 (06:53→23:39)
[2019-05-23 07:05] LABS: BASO# 0.04 X1000 (0.0-0.2); BASO% 0.5 % (0.0-0.8); EOS# 0.45 X1000 (0.0-0.7); HEMATOCRIT 40.7 % (42.0-52.0); HEMOGLOBIN 13.1 g/dL (14.0-18.0); IMM GRAN# 0.11 X1000 (0.0-0.04); IMM GRAN% 1.5 % (0.0-0.5); LYMPH# 1.32 X1000 (1.2-3.4); LYMPH% 17.6 % (20.5-51.1); MCHC 32.2 g/dL (33-37); MONO# 0.89 X1000 (0.11-0.59); MONO% 11.8 % (1.7-9.3); MPV 12.8 FL (7.4-10.4); NEUT# 4.71 X1000 (1.4-6.5); NEUT% 62.6 % (42.2-75.2); PLT 219 X1000 (130-400); RBC 4.52 XMIL (4.7-6.1); RDW 15.5 % (11.5-14.5); WBC 7.52 X1000 (4.8-10.8)
--- NOTE | 2019-05-23 07:28 | Diag Imaging Result Doc PS360 ---
CHEST-PORTABLE - 05/23/2019 INDICATION: Pneumonia COMPARISON: 05/20/2019 FINDINGS: There has been improvement in the platelike atelectasis in the left lung base. Stable reticulonodular infiltrates throughout the right lung and in the left lung base. Stable left hemidiaphragm elevation. Heart size remains normal. IMPRESSION: Improvement in the plate like atelectasis in the left lung base. Stable bilateral pneumonia. Electronically signed by Arya Sinha 05/23/2019 7:25 AM
[2019-05-23 07:43] LABS: AGAP 15; BUN 18 mg/dL (8-22); CHLORIDE 106 mmol/L (98-107); COSMO 289; CREATININE 0.7 mg/dL (0.7-1.2); ESTIMATED GFR > 60; GLUCOSE 95 mg/dL (70-104); SODIUM 144 mmol/L (136-145); TCO2 23 mmol/L (25-35)
[2019-05-23] MEDS: XOPENEX NEB INH SCH ×3 (09:09→21:10)
[2019-05-23] MEDS: ATROVENT NEB INH SCH ×4 (09:09→21:10)
[2019-05-23] MEDS: MUCOMYST 20% INH SCH ×2 (09:09→21:10)
[2019-05-23] MEDS: MAXIPIME 2 GM in NS 100 ML IV SCH ×3 (10:26→23:11)
[2019-05-23] MEDS: CLINIMIX E 4.25%-5% SOLUTION 1,000 ML IV SCH ×2 (15:32→15:33)
[2019-05-23] MEDS: VANCOMYCIN 2 GM in NS 500 ML IV SCH (15:33)
[2019-05-23] MEDS: PROTONIX IV SCH (17:44)
[2019-05-23] MEDS: SODIUM CHLORIDE 0.9% INJ SCH (17:44)
--- NOTE | 2019-05-23 22:18 | PULMONOLOGY PROGRESS NOTE ---
DATE: 05/23/2019 SUBJECTIVE: The patient is awake and alert. He is asking for some water. OBJECTIVE: Blood pressure 108/63, heart rate 64, respiratory rate 20, oxygen saturation 100% on 3 L per nasal cannula.HEENT: Pupils are equal and reactive. Oropharynx is clear. Neck is supple. Chest reveals occasional rhonchi bilaterally with poor cough effort. Cardiac exam: S1, S2. Abdomen is soft. Extremities are without edema. DIAGNOSTIC DATA: Chest x-ray reveals stable faint infiltrates bilaterally, with decreased atelectasis at the left base. LABORATORY DATA: White blood count 7.52, hemoglobin 13.1, platelet count 219,000. Sodium 144, potassium 4.0, chloride 106, bicarbonate 23, BUN 18, creatinine 0.7. QuantiFERON Gold TB test was negative. IMPRESSION: A 64-year-old with: 1. Parkinson disease. 2. Dementia. 3. Dysphagia, with aspiration on thin and thick barium. 4. Recurrent aspiration pneumonia. 5. Hypoxemic respiratory failure. DISCUSSION: A 64-year-old with problems outlined above. The best route to prevent additional aspiration would be to place a PEG tube. Family and patient have discussed this, and with his progressive decline he has elected not to pursue a PEG tube. RECOMMENDATIONS: 1. Begin ice chips and sips of water. 2. Anticipate discharge to long-term skilled facility with hospice. cc: Michael Smith MD
--- NOTE | 2019-05-23 22:38 | PROGRESS NOTE ---
DATE: 05/23/2019 SUBJECTIVE: The patient is resting in bed. He is currently on Clinimix. OBJECTIVE: Vital Signs: Temperature 97.9 degrees, blood pressure 100/65, heart rate 69, respirations 20, O2 saturation 95% on room air. General: This is a chronically ill-appearing, elderly male lying in bed, in no acute distress. Heart: S1, S2. Normal. Lungs: Equal air entry bilaterally. Coarse breath sounds. Abdomen: Positive bowel sounds. Soft, nontender, nondistended. Extremities: No edema. No cyanosis. Neurologic: The patient is oriented to self. He does have confusion. LABS: White blood cell count 7.5, hemoglobin 13, hematocrit 40, platelets 219,000. Sodium 144, potassium 4, BUN 18, creatinine 0.7. Glucose 95. Chest x-ray shows improvement in the atelectasis in the left lung base. Bilateral pneumonia is present. ASSESSMENT AND PLAN: 1. Multilobular pneumonia with right upper lobe abscess. Continue with antibiotic therapy. 2. Dysphagia. The patient is currently NPO. He is currently receiving nutrition with Clinimix. Palliative care has been consulted for assistance with goals of care. 3. Dementia. Aware. 4. Parkinson disease. Aware. 5. Gastrointestinal prophylaxis. Continue on Protonix. 6. Deep venous thrombosis prophylaxis. Will start the patient on Lovenox. 7. Disposition. The patient is currently a DNR level 1. He is unable to swallow without aspirating. Palliative Care has been consulted for assistance with goals of care. The patient will be discharged to [facility] with hospice once medically stable. cc: Anum Harden MD MTDD
[2019-05-24] MEDS: DEPACON 500 MG in NS 50 ML IV SCH ×2 (03:33→16:48)
[2019-05-24] MEDS: ATROVENT NEB INH SCH ×4 (03:52→21:31)
[2019-05-24] MEDS: FLAGYL 500 MG/NS 500 MG/100 ML IVPB IV SCH ×3 (06:18→17:56)
[2019-05-24] MEDS: CLINIMIX E 4.25%-5% SOLUTION 1,000 ML IV SCH ×2 (06:18→19:59)
[2019-05-24 07:29] LABS: HEMATOCRIT 41.4 % (42.0-52.0); MCH 28.8 PG (27-31); MCHC 31.4 g/dL (33-37); MCV 91.6 FL (81-99); MPV 12.5 FL (7.4-10.4); RBC 4.52 XMIL (4.7-6.1); RDW 15.5 % (11.5-14.5); WBC 8.72 X1000 (4.8-10.8)
[2019-05-24 08:01] LABS: AGAP 12; CHLORIDE 106 mmol/L (98-107); GLUCOSE 86 mg/dL (70-104); POTASSIUM 4.2 mmol/L (3.5-5.1); SODIUM 142 mmol/L (136-145); TCO2 24 mmol/L (25-35)
[2019-05-24 08:02] LABS: ALB/GLOB RATIO 0.6; ALBUMIN 2.8 g/dL (3.5-5.0); ALKALINE PHOSPHATASE 62 U/L (32-122); BUN 20 mg/dL (8-22); CALCIUM 9.2 mg/dL (8.8-10.2); COSMO 285; CREATININE 0.8 mg/dL (0.7-1.2); ESTIMATED GFR > 60; GOT 29 U/L (10-34); GPT 19 U/L (10-44); TOTAL BILIRUBIN 0.35 mg/dL (0.20-1.00); TOTAL PROTEIN 7.2 g/dL (6.3-8.3)
[2019-05-24] MEDS: XOPENEX NEB INH SCH ×3 (09:00→21:31)
[2019-05-24] MEDS: MUCOMYST 20% INH SCH ×2 (09:00→21:32)
[2019-05-24] MEDS: LOVENOX SUBQ SCH (11:00)
[2019-05-24] MEDS: MAXIPIME 2 GM in NS 100 ML IV SCH ×2 (11:00→23:42)
[2019-05-24] MEDS: PROTONIX IV SCH (16:48)
[2019-05-24] MEDS: SODIUM CHLORIDE 0.9% INJ SCH (16:48)
[2019-05-24] MEDS: VANCOMYCIN 1,750 MG in NS 250 ML IV SCH (19:01)
--- NOTE | 2019-05-24 19:11 | PROGRESS NOTE ---
DATE: 05/24/2019 SUBJECTIVE: The patient is resting comfortably in bed. He states that he is thirsty. OBJECTIVE: Vital Signs: Temperature 97.4 degrees, blood pressure 98/64, heart rate 74, respirations 20, O2 saturation is 100% on 3 L nasal cannula. General: This is a chronically ill- appearing elderly male, lying in bed in no acute distress. Heart: S1, S2 normal. Lungs: Coarse breath sounds bilaterally. Abdomen: Positive bowel sounds. Soft, nontender, nondistended. Extremities: No edema. No cyanosis. Neurologic: The patient is awake and alert. LABORATORY DATA: White blood cell count 8.7, hemoglobin 13, hematocrit 41 platelets 202,000. Sodium 142, potassium 4.2, chloride 106, CO2 of 24, BUN 20, creatinine 0.8, glucose 86. ASSESSMENT AND PLAN: 1. Multilobular pneumonia with a right upper lobe abscess. Continue with supplemental oxygen and antibiotic therapy. 2. Aspiration with dysphagia. The patient is currently on Clinimix. We will need to discuss with the patient's power of attorney at law the plan for nutrition since the patient is not interested in PEG tube placement. 3. Dementia. Aware. 4. Parkinson disease. Aware. 5. Gastrointestinal prophylaxis. Continue on Protonix. DISPOSITION: The patient is currently a DNR level 1. Palliative Care has been consulted for assistance with goals of care. The patient is from [facility]. cc: Anum Harden MD
[2019-05-25] MEDS: FLAGYL 500 MG/NS 500 MG/100 ML IVPB IV SCH ×4 (02:15→21:14)
[2019-05-25] MEDS: DEPACON 500 MG in NS 50 ML IV SCH ×3 (03:38→17:35)
[2019-05-25] MEDS: ATROVENT NEB INH SCH ×4 (03:45→21:43)
[2019-05-25] MEDS: LOVENOX SUBQ SCH (08:09)
[2019-05-25] MEDS: XOPENEX NEB INH SCH ×3 (10:36→21:43)
[2019-05-25] MEDS: MUCOMYST 20% INH SCH ×2 (10:36→21:43)
--- NOTE | 2019-05-25 10:46 | PROGRESS NOTE ---
DATE: 05/25/2019 SUBJECTIVE: The patient is resting in bed. He is requesting something to drink. OBJECTIVE: Vital Signs: Temperature 97.5 degrees, blood pressure 127/81, heart rate 70, respirations 16, O2 saturation is 95% on room air. General: This is a chronically ill-appearing, elderly male lying in bed, in no acute distress. Heart: S1, S2 normal. Lungs: Rhonchi in both lung moeller. Abdomen: Positive bowel sounds. Soft, nontender, nondistended. Extremities: No cyanosis, no calf tenderness. Neurologic: The patient is awake but demented. Labs: White blood cell count 8.7, hemoglobin 13, hematocrit 41, platelets 202,000. Sodium 142, potassium 4.2, chloride 106, CO2 of 24, BUN 20, creatinine 0.8, glucose 86. ASSESSMENT AND PLAN: 1. Multilobular pneumonia with a right upper lobe abscess. Continue with antibiotics and bronchodilator therapy. 2. Aspiration with dysphagia. I spoke with the patient's son and he is interested in initiating total parenteral nutrition. We will consult with palliative care. He is not interested in percutaneous endoscopic gastrostomy tube placement. 3. Dementia. Aware. 4. Parkinson's disease. Aware. 5. Gastrointestinal prophylaxis. Continue on Protonix. 6. Disposition. The patient is currently a Do Not Resuscitate level 1. Palliative care has been consulted for assistance with goals of care. The patient is from [facility]. cc: Anum Harden MD
[2019-05-25] MEDS: MAXIPIME 2 GM in NS 100 ML IV SCH ×2 (11:56→11:57)
[2019-05-25] MEDS: SODIUM CHLORIDE 0.9% INJ SCH (16:51)
[2019-05-25] MEDS: PROTONIX IV SCH (16:51)
[2019-05-25] MEDS: CLINIMIX E 4.25%-5% SOLUTION 1,000 ML IV SCH (17:02)
[2019-05-25] MEDS: VANCOMYCIN 1,750 MG in NS 250 ML IV SCH (18:29)
[2019-05-26] MEDS: CLINIMIX E 4.25%-5% SOLUTION 1,000 ML IV SCH ×2 (00:23→18:10)
[2019-05-26] MEDS: MAXIPIME 2 GM in NS 100 ML IV SCH ×2 (00:23→12:24)
[2019-05-26] MEDS: FLAGYL 500 MG/NS 500 MG/100 ML IVPB IV SCH ×4 (02:42→19:53)
[2019-05-26] MEDS: ATROVENT NEB INH SCH ×4 (03:20→21:14)
[2019-05-26] MEDS: DEPACON 500 MG in NS 50 ML IV SCH ×2 (04:51→18:28)
[2019-05-26 07:08] LABS: HEMATOCRIT 40.2 % (42.0-52.0); HEMOGLOBIN 12.8 g/dL (14.0-18.0); MCHC 31.8 g/dL (33-37); MCV 91.2 FL (81-99); MPV 12.5 FL (7.4-10.4); RBC 4.41 XMIL (4.7-6.1); RDW 15.3 % (11.5-14.5); WBC 5.97 X1000 (4.8-10.8)
[2019-05-26 07:28] LABS: AGAP 11; BUN 18 mg/dL (8-22); CHLORIDE 105 mmol/L (98-107); COSMO 277; CREATININE 0.7 mg/dL (0.7-1.2); ESTIMATED GFR > 60; GLUCOSE 86 mg/dL (70-104); POTASSIUM 4.4 mmol/L (3.5-5.1); SODIUM 138 mmol/L (136-145); TCO2 22 mmol/L (25-35)
[2019-05-26] MEDS: LOVENOX SUBQ SCH (08:14)
--- NOTE | 2019-05-26 09:15 | PROGRESS NOTE ---
DATE: 05/18/2019 SUBJECTIVE: He had an abnormal chest x-ray. This is a 64-year-old with history of Parkinson disease, sent to the emergency room by the truck driver salesperson due to abnormal chest x-ray. Home Health had come out and he has had pneumonia twice now recently. Chest x-ray showed worsening pneumonia with multilobar cavitary lesion. Apparently, he has been declining over the last 2 weeks since symptoms began. Had a productive cough with congestion. No fever. Currently lives with his son. They are seeking placement. Recently taking Levaquin and clindamycin. I believe that he has had no improvement. Chest CT showed multinodular pneumonia throughout the left lung, but worse at the base. Milder pneumonia at the left base. Also, cavitary lesion in the right upper lobe is nonspecific, probably part of the infection process. Admission diagnosis Showed multilobar pneumonia which failed outpatient treatment times 2 with different antibiotics. He was put on IV vancomycin, Maxipime and doxycycline. The patient is awake. He responds mainly by grunting, but did not did not talk to me much. OBJECTIVE: Vital Signs: Temperature is 98.2 degrees, pulse 69, respirations 22, blood pressure 132/74. Eyes: Pupils are equal and round. Neck: No distended neck veins. Lungs: Clear anterior lateral. Cardiovascular exam: Regular rhythm and rate without murmur or S3. Abdomen: Soft. Extremities: No pedal edema. : Urine output was 2800. ASSESSMENT AND PLAN: 1. Multilobar pneumonia with right upper lobe abscess. Continue antibiotics and bronchodilator therapy. 2. Aspiration and dysphagia. I spoke with the son. He is interested in initiating total parental nutrition. We will consult with Palliative Care. He is not interested in percutaneous endoscopic gastrostomy tube placement. 3. Dementia. 4. Parkinson disease. 5. Gastrointestinal prophylaxis on Protonix. 6. Disposition: He is a do not resuscitate level 1. Palliative Care has been consulted. 7. Goals of care: The patient is from [facility]. REVIEW OF ORDERS: He is on Clinimix 70 mL an hour, gets acetylcysteine 20%, breathing treatments 3 mL b.i.d., Flagyl 500 mg IV q. 6 hours, cefepime 2 g IV q. 12 hours, Protonix 40 mg IV q. 24 hours, valproate 500 mg IV q. 12 hours, vancomycin 1750 mg IV q. 24 hours. LABORATORY DATA: Review of his lab today: White count 5970, hematocrit is 40, platelet count 199,000. Sodium 138, potassium 4.0, chloride 105. BUN 18, creatinine 0.7. Albumin was 2.6. cc: Scottie Wilson MD
[2019-05-26] MEDS: MUCOMYST 20% INH SCH ×2 (11:43→21:15)
[2019-05-26] MEDS: XOPENEX NEB INH SCH ×3 (11:43→21:14)
[2019-05-26] MEDS: PROTONIX IV SCH (18:10)
[2019-05-26] MEDS: SODIUM CHLORIDE 0.9% INJ SCH (18:10)
[2019-05-26] MEDS: VANCOMYCIN 1,750 MG in NS 250 ML IV SCH (21:26)
--- NOTE | 2019-05-26 22:13 | PULMONOLOGY PROGRESS NOTE ---
DATE: 05/26/2019 SUBJECTIVE: Patient had his leg over the rail when I came into the room. He is awake, alert, and disoriented. OBJECTIVE: Vital signs: The patient has been afebrile for the last 24 hours. Blood pressure 128/69, heart rate 80, respiratory rate 20, oxygen saturation 95%. HEENT: Pupils are equal. He has mild exophthalmos. Oropharynx appears clear. Neck: Supple. Chest: Reveals occasional rhonchi bilaterally. Cardiac: S1, S2. Abdomen: Soft. Extremities: Without edema. LABORATORIES: White blood count 5.97, hemoglobin 12.8, platelet count 199,000. Sodium 138, potassium 4.4, chloride 105, bicarbonate 22, BUN 18, creatinine 0.7. IMPRESSION: 1. A 64-year-old with dementia. 2. Parkinson disease. 3. Dysphagia, with aspiration on thin and thick barium. 4. Recurrent aspiration pneumonia. 5. Hypoxemic respiratory failure. DISCUSSION: A 64-year-old with problems outlined above. The patient's family and the patient have previously requested no PEG tube. Family is aware that he will likely have progressive decline with recurrent aspiration. The patient was previously on hospice, but admitted to the hospital with pneumonia. RECOMMENDATIONS: Agree with discharge to the nursing with a hospice admission. No new recommendations. Please call with questions. cc: Michael Smith MD
[2019-05-27] MEDS: MAXIPIME 2 GM in NS 100 ML IV SCH (00:17)
[2019-05-27] MEDS: FLAGYL 500 MG/NS 500 MG/100 ML IVPB IV SCH ×2 (02:54→08:33)
[2019-05-27] MEDS: ATROVENT NEB INH SCH ×2 (03:36→10:26)
[2019-05-27] MEDS: DEPACON 500 MG in NS 50 ML IV SCH (04:53)
[2019-05-27 07:19] VITALS: BP 105/69
[2019-05-27] MEDS: LOVENOX SUBQ SCH (08:33)
[2019-05-27] MEDS: XOPENEX NEB INH SCH (10:26)
[2019-05-27] MEDS: MUCOMYST 20% INH SCH (10:26)
--- NOTE | 2019-05-27 10:34 | DISCHARGE SUMMARY ---
ADMISSION DATE: 05/18/2019 DISCHARGE DATE: 05/27/2019 ANTICIPATED DISCHARGE: 05/27/2019. HISTORY: He is a patient Dr. Garry Virgen. He came in because of abnormal x-ray. Mr. Anderson is a 64-year-old male with a history of Parkinson's disease, sent to the emergency room by the physical design engineer due to abnormal chest x-ray. He had Home Health come out. He had pneumonia x2. Chest x-ray showed worsening pneumonia that was multilobar and a cavitary lesion. Apparently, he had been declining over the last couple weeks. Symptoms began at that time 2 weeks ago of productive cough with congestion, no fever. Currently lives with his son and they were seeing about seeking placement for him, I think. He had recently taken Levaquin and clindamycin, and I think he has had no improvement. Chest CT showed multilobar pneumonia throughout the right lung but worse at the base. Mild pneumonia at the left base and cavitary lesion in the right upper lobe that is nonspecific and probably part of the infection process. PAST MEDICAL HISTORY: 1. Bipolar disorder. 2. Schizophrenia. 3. Parkinson's disease. 4. Metabolic syndrome. 5. Hypertension. 6. Pneumonia. PREVIOUS SURGERY: He has had back surgeries in the past. ADMISSION DIAGNOSES: 1. Multilobar pneumonia with failed outpatient treatment x2 on different antibiotics. He was placed on IV vancomycin, Maxipime and doxycycline. 2. Parkinson's disease. Aware. 3. Acute kidney injury. Gave him back some fluids. 4. Underlying dementia. 5. Hypertension. 6. General weakness and deconditioning. HOSPITAL COURSE: Pulmonary was consulted. Dr. Smith saw him. The patient has progressive dysphagia associated with Parkinson's disease, has an area of cavitation in the upper lobe that most likely represents a small lung abscess. Differential would include cavitating bronchiogenic carcinoma, much less likely tuberculosis. The patient did have a CT of the thorax in August 2014 that did not reveal any stigmata to suggest prior TB, so QuantiFERON test was checked and continued broad-spectrum antibiotics. Barium speech modified barium swallow was done and did show some aspiration. The hypopharynx including the piriform sinuses and the vallecula are somewhat patulous. Airway is not well protracted and there was aspiration of both thin and pudding consistency barium. No cough. The patient showed some improvement. He did not want a PEG tube and they wanted to pursue retirement placement. The patient's family and the patient had previously requested PEG tube. Family is aware that he will likely progress and decline with recurrent aspiration. The patient was previously on hospice, admitted to the hospital with pneumonia. So, plan to discharge him to retirement on hospice admission and hope to get him there over there today. CURRENT MEDICATIONS: 1. We will stop his Clinimix. 2. He is going to get Protonix 40 mg, give that to him p.o. once a day. 3. We will give him his Atrovent and Xopenex breathing treatments if needed. cc: Scottie Wilson MD
== END 2019-05-27 11:35 | DRG 871 ==
LOC: ED 16:57 → SUATTDRO 05-18 01:32 → EDIPHOLD 05-18 01:32 → 4N 05-18 09:28
PROVIDERS: ATTEND Emergency Medicine